=== PATIENT | male | born 1945 | race Caucasian/White ===

== ENCOUNTER 2020-10-12 10:24 | Outpatient (CLI) | payer MEDICARE, SELFPAY ==
--- NOTE | ~2020-10-12 | MR_ITS ---
EXAMINATION: MR shoulder RT wo con DATE: 10/12/2020 11:33 INDICATION: Chronic right shoulder pain. TECHNIQUE: Magnetic resonance imaging (MRI) of the right shoulder was performed without intravenous c ontrast. Sequences included axial PD-weighted FS FSE, coronal oblique PD-weighted FS FSE and T2-weigh quan FS FSE, and sagittal oblique T2-weighted FS FSE and T1-weighted FSE. COMPARISON: None. FINDINGS: Coracoacromial arch: The acromion undersurface is flat in morphology (type I). There is severe acromioclavicular joint ost eoarthritis including inferior directed osteophytes. There is moderate subacromial/subdeltoid bursiti s. There is a 6 mm loose body in subacromial subdeltoid bursa. Rotator cuff: There is severe supraspinatus and infraspinatus tendinopathy. There is a full-thickness tear of supra spinatus and infraspinatus tendons measuring 3.1 cm anterior to posterior by 3.5 cm proximal to dista l with interstitial fluid in infraspinatus tendon tracking to the myotendinous junction. Teres minor tendon is normal. There is severe subscapularis tendinopathy with partial tear. There is mild fatty a trophy of supraspinatus, infraspinatus, and supraspinatus muscle bellies. There is edema in infraspin atus muscle belly, consistent with strain. Biceps tendon and glenoid labrum: There is a partial tear of biceps tendon, which is in the bicipital groove. There is widespread teari ng of the glenoid labrum. Fluid: There is a moderate-sized glenohumeral joint effusion with loose bodies. Bones/cartilage: There is deep partial thickness cartilage loss of humeral head superiorly and medially. There is full -thickness cartilage loss of central glenoid. There is extensive partial thickness cartilage loss of glenoid with subchondral edema of posterior inferior glenoid. Osteophytes are noted. IMPRESSION: 1. Full-thickness rotator cuff tear. 2. Severe glenohumeral joint chondrosis. 3. Partial tear of proximal biceps tendon. 4. Severe acromioclavicular joint osteoarthritis. 5. Moderate-sized glenohumeral joint effusion with loose bodies and moderate subacromial/subdeltoid b ursitis with loose body. Reviewed, dictated and finalized at location A. IMPRESSION: 1. Full-thickness rotator cuff tear. 2. Severe glenohumeral joint chondrosis. 3. Partial tear of proximal biceps tendon. 4. Severe acromioclavicular joint osteoarthritis. 5. Moderate-sized glenohumeral joint effusion with loose bodies and moderate ba bacromial/subdeltoid bursitis with loose body.
== END 2020-10-12 10:25 | disposition home or self-care (01) ==
PROVIDERS: PCP Internal Medicine; Visit Provider Internal Medicine
DX: M75.101 Unspecified rotator cuff tear or rupture of right shoulder, not specified as traumatic (principal); M19.011 Primary osteoarthritis, right shoulder; M25.411 Effusion, right shoulder
CPT/HCPCS: 73221

== ENCOUNTER 2023-11-18 14:53 | Outpatient (CLI) | payer MEDICARE, SELFPAY ==
--- NOTE | ~2023-11-18 | XR_ITS ---
XR shoulder LT min 2V 11/18/2023 15:20 Indication: Left shoulder pain Procedure: 4 views left shoulder Comparison: No prior studies for comparison. Findings: There is polyarticular osteoarthritis of the left shoulder. No fracture or traumatic malali gnment. Superior subluxation of the humeral head suggests rotator cuff tear. Correlate clinically. Impression: 1: Polyarticular osteoarthritis of the left shoulder. Reviewed, dictated and finalized at location B. Impression: 1: Polyarticular osteoarthritis of the left shoulder.
--- NOTE | ~2023-11-18 | XR_ITS ---
Right Shoulder Technique: AP and scapular Y views were obtained. Clinical History: Osteoarthritis Findings: No fracture or dislocation is seen. Osseous alignment is anatomic. There is mild glenohumer al joint degenerative change. There is [id number] AC joint degenerative change. Soft tissues ar e unremarkable. Impression: Degenerative changes, as detailed above. Reviewed, dictated and finalized at location M. Impression: Degenerative changes, as detailed above.
== END 2023-11-18 14:54 | disposition home or self-care (01) ==
LOC: ANHIMG 15:01
PROVIDERS: Visit Provider Orthopaedic Surgery
DX: M19.011 Primary osteoarthritis, right shoulder (principal); M19.012 Primary osteoarthritis, left shoulder
CPT/HCPCS: 73030

== ENCOUNTER 2024-02-09 11:55 | Outpatient (CLI) | payer MEDICARE, SELFPAY ==
--- NOTE | ~2024-02-09 | CT_ITS ---
EXAMINATION: CT shoulder LT wo con DATE: 02/09/2024 12:37 INDICATION: Left shoulder osteoarthritis for preoperative planning TECHNIQUE: High resolution computed tomography (CT) of the left shoulder was performed without intrav enous contrast. Additional sagittal and coronal reconstructions were performed. Automated exposure co ntrol and iterative reconstruction technique were employed. The dose-length product was 768.25 mGy-cm . COMPARISON: Left shoulder radiographs dated 11/18/2023 FINDINGS: Bone alignment is normal. No fracture. Mild osteoarthritis at the left glenohumeral joint and moderat e osteoarthritis at the left acromioclavicular joint. There is a small left glenohumeral joint effusi on with couple loose osteochondral bodies at the deep subscapular recess. There is severe fatty atrop hy of the subscapularis and infraspinatus muscle bellies which could be secondary to chronic denervat ion or rotator cuff tears. Small lytic lesion with sclerotic margins at the cephalad aspect of the in tertubercular groove with appearance and location suggesting possible anchor sites for bicipital teno desis. There is chronic coronary artery calcification. No pathologically enlarged left axillary or le ft hilar lymphadenopathy. IMPRESSION: 1. Polyarticular osteoarthritis at the left shoulder, mild at the glenohumeral and moderate at the ac romioclavicular joints. 2. Severe fatty atrophy of the left subscapularis and infraspinatus muscle bellies which could be due to chronic degeneration or chronic rotator cuff tears. Reviewed, dictated and finalized at location A. IMPRESSION: 1. Polyarticular osteoarthritis at the left shoulder, mild at the glenohumeral and moderate at the acromioclavicular joints. 2. Severe fatty atrophy of the left subscapularis and infraspinatus muscle devi ies which could be due to chronic degeneration or chronic rotator cuff tears.
== END 2024-02-09 11:56 | disposition home or self-care (01) ==
PROVIDERS: Visit Provider Orthopaedic Surgery
DX: M19.012 Primary osteoarthritis, left shoulder (principal)
CPT/HCPCS: 73200

== ENCOUNTER 2024-03-17 13:28 | Outpatient (CLI) | payer MEDICARE, SELFPAY ==
--- NOTE | 2024-03-17 14:40 | ECG_ITS ---
Test Date: 2024-03-17 15:03:56 Measurements Intervals [place] Rate: 92 P: -4 SC: 185 QRS: -39 QRSD: 134 T: -1 QT: 360 QTc: 447 Interpretive Statements SINUS RHYTHM MARKED LEFT AXIS DEVIATION [QRS AXIS < -30] RIGHT BUNDLE BRANCH BLOCK [120+ ms QRS DURATION, UPRIGHT V1, 40+ ms S IN I/aVL/V4/V5/V6] VOLTAGE CRITERIA FOR LVH [MEETS CRITERIA IN ONE OF: R(aVL), S(V1), R(V5), R(V5/V6)+S(V1)] POSSIBLE SEPTAL MYOCARDIAL INFARCTION [30 ms Q WAVE IN V1/V2], PROBABLY OLD No previous ECG available for comparison Electronically Signed On 03-18-2024 14:22:02 [facility] by Fredrick Allison M.D.
[2024-03-17 15:25] LABS: Basophils Percent Auto 0.5 % (0.2-1.2); Eosinophils Absolute Auto 0.1 K/mm3 (0-0.3); Eosinophils Percent Auto 1.3 % (0-4.4); Hematocrit 40.3 % (42.0-52.0); Hemoglobin 13.5 g/dL (14.0-18.0); Immature Granulocyte Absolute 0.03 K/mm3 (0.00-0.031); Immature Granulocyte Percent A 0.4 % (0-0.5); Lymphocytes Absolute Auto 1.44 K/mm3 (0.9-3.2); Lymphocytes Percent Auto 18.7 % (18.3-44.2); Mean Corpuscular HGB Conc 33.5 g/dl (32-36); Mean Corpuscular Hemoglobin 32.1 pg (26-34); Mean Platelet Volume 9.9 fl (7.4-10.4); Monocytes Absolute Auto 0.7 K/mm3 (0.1-0.6); Monocytes Percent Auto 9.4 % (2.6-8.5); Neutrophils Absolute Auto 5.4 K/mm3 (1.3-6.7); Neutrophils Percent Auto 69.7 % (45.5-73.1); Platelet Count Result 173 k/mm3 (150-375); Red Cell Distribution Width 13.4 % (11.5-14.5); White Blood Count 7.7 K/mm3 (4.5-10.0)
[2024-03-17 15:35] LABS: Anion Gap 4 mmol/L (4-12); Blood Urea Nitrogen 25 mg/dL (9-20); Carbon Dioxide 30 mmol/L (22-30); Chloride 106 mmol/L (98-107); Estimated Glomerular Filt Rate > 60; Glucose 97 mg/dL (65-110); Potassium 3.8 mmol/L (3.4-5.0); Sodium 140 mmol/L (137-145)
[2024-03-17 16:38] LABS: MRSA (PCR) NOT DETECTED (NOT DETECTE)
== END 2024-03-17 13:29 | disposition home or self-care (01) ==
LOC: ANHSURGERY 13:35
PROVIDERS: Anesthesiology; PCP Family Medicine; Visit Provider Orthopaedic Surgery
DX: Z01.818 Encounter for other preprocedural examination (principal); M12.812 Other specific arthropathies, not elsewhere classified, left shoulder; I10 Essential (primary) hypertension; Z51.81 Encounter for therapeutic drug level monitoring
CPT/HCPCS: 36415; 80048; 85025; 87641; 93005

== ENCOUNTER 2024-10-02 10:09 | Outpatient (CLI) | payer MEDICARE, SELFPAY ==
[2024-10-02 11:25] LABS: Basophils Percent Auto 0.7 % (0.2-1.2); Eosinophils Absolute Auto 0.1 K/mm3 (0-0.3); Eosinophils Percent Auto 2.4 % (0-4.4); Hematocrit 44.7 % (42.0-52.0); Immature Granulocyte Absolute 0.02 K/mm3 (0.00-0.031); Immature Granulocyte Percent A 0.3 % (0-0.5); Immature Platelet Fraction Pct 4.1 % (0.9-11.2); Lymphocytes Absolute Auto 2.04 K/mm3 (0.9-3.2); Mean Corpuscular HGB Conc 33.6 g/dl (32-36); Mean Corpuscular Volume 95.3 fl (80-100); Mean Platelet Volume 10.4 fl (7.4-10.4); Monocytes Absolute Auto 0.5 K/mm3 (0.1-0.6); Monocytes Percent Auto 8.6 % (2.6-8.5); Neutrophils Absolute Auto 3.1 K/mm3 (1.3-6.7); Platelet Count Result 127 k/mm3 (150-375); Red Blood Count 4.69 M/mm3 (4.6-6.20); Red Cell Distribution Width 13.9 % (11.5-14.5); White Blood Count 5.8 K/mm3 (4.5-10.0)
[2024-10-02 11:48] LABS: Anion Gap 8 mmol/L (4-12); Blood Urea Nitrogen 27 mg/dL (9-20); Calcium 9.6 mg/dL (8.4-10.2); Carbon Dioxide 29 mmol/L (22-30); Chloride 104 mmol/L (98-107); Estimated Glomerular Filt Rate 58; Glucose 107 mg/dL (65-110); Potassium 4.6 mmol/L (3.4-5.0); Sodium 141 mmol/L (137-145)
[2024-10-02 12:48] LABS: MRSA (PCR) NOT DETECTED (NOT DETECTE)
== END 2024-10-02 10:10 | disposition home or self-care (01) ==
LOC: ANHSURGERY 10:16
PROVIDERS: Anesthesiology; PCP Family Medicine; Visit Provider Orthopaedic Surgery
DX: Z01.818 Encounter for other preprocedural examination (principal); M12.812 Other specific arthropathies, not elsewhere classified, left shoulder; Z51.81 Encounter for therapeutic drug level monitoring
CPT/HCPCS: 36415; 80048; 85025; 85055; 87641

== ENCOUNTER 2024-10-31 00:09 | Day surgery (SDC) | payer MEDICARE, SELFPAY ==
[2024-10-02 10:25] VITALS: BP 110/78; PULSE 74; RESP 16; TEMP 36.4; O2SAT 96; BMI 35.9
--- NOTE | 2024-10-02 10:44 | PC.NURSE ---
Report to the Outpatient Waiting Room, entrance under the green pavilion located off [address] [facility], at time ___6:00AM____ on date ___10/31/24____. Planned Procedure Time: ___7:30AM .? Time changes happen often and if your time is changed the preop area will call you the afternoon before. - You and your visitor will be asked to self-screen and do not enter if you have any COVID symptoms. Please call surgeon if you need to reschedule. - A mask is optional within the hospital at this time. Patients may have clear liquids (water, carbonated beverages, clear teas, apple juice) until 3 hours prior to surgery (4:30AM) with a maximum of 20 ounces. - No food from midnight until time of surgery and no smoking, or chewing tobacco (or any form of nicotine). No chewing gum, candy or mints. Take only the following medications with a SIP of water on the morning of surgery: ____SERTRALINE DO NOT STOP ANY OF YOUR OTHER PRESCRIPTION MEDICATIONS PRIOR TO SURGERY EXCEPT THE FOLLOWING Hold all vitamins and supplements for 3 days per anesthesiologist. Medications to discontinue per physician HOLD IBUPROFEN(NSAIDS) 7 DAYS PRE-OP PER DR. RAMIREZ Date to take last dose 10/23/24 Please no make-up, nail macedonian, hairspray, perfume, deodorant, or body powder the day of surgery.? No jewelry (including any body piercings) or valuables the day of surgery, leave them at home.? Please take a shower or bath the night before, or the morning of, surgery with an antibacterial soap.? Wear comfortable, loose fitting clothing.? - Jewelry must be removed prior to entering the operating room.? Rings and piercings that are not removed may be cut off. - The hospital will not accept responsibility for valuables.? - Please leave all valuables, including medications, at home the day of surgery. If you are going home after surgery, a licensed ambulance driver must drive you home.? - NO public transportation without another adult if you receive anesthesia. - We recommend that an adult stay with you for 24 hours following discharge. - We also recommend that you do not drive, make important decision, drink alcoholic beverages, or take any drugs that were not prescribed by your health care provider for at least 24 hours after your discharge time. Follow any additional instructions given to you from your surgeon. Telephone instructions given to ___PATIENT & WIFE and asked if any additional questions and then verbalized understanding. Patient advised to call surgeon office or pre surgery nurse liaison [phone] if any additional questions.
[2024-10-31] VITALS (12 sets, daily range): BP systolic 107–149; BP diastolic 68–94; PULSE 61–89; RESP 16–20; TEMP 35.8–36.5; O2SAT 91–100; BMI 36.2
--- NOTE | ~2024-10-31 | XR_ITS ---
XR shoulder LT min 2V 10/31/2024 10:18 Indication: EXAMINATION: XR shoulder LT min 2V DATE: 10/31/2024 10:18 INDICATION: Left shoulder arthroplasty TECHNIQUE: 2 views left shoulder FINDINGS: There is a left shoulder arthroplasty in expected position. Subcutaneous gas with soft tis wilbur swelling are consistent with recent surgery. IMPRESSION: 1. Recent left shoulder arthroplasty. Reviewed, dictated and finalized at location A.
--- OUTSIDE RECORDS SUMMARY | 2024-10-31 00:12 | XMS_ITS | Referral Summary ---
Author Organization [facility] Address [address] [place] [address] Care Team Providers Care Development Educator Name Role Phone Gadiel Hernandez MD Primary Care Provider Fredrick Allison MD Unavailable [phone] Encounters Date Type Department Care Team Description 08/10/2024 Telephone [facility] at [address] [place] [address] Quinn Hayden MD from Last 3 Months Allergies No known active allergies Medications sertraline (ZOLOFT) 100 mg tablet Take 1 tablet (100 mg total) by mouth daily 90 tablet 5 05/18/19 26 Active traZODone (DESYREL) 50 mg tablet TAKE 1 TABLET BY MOUTH ONCE DAILY IN THE EVENING 100 tablet 5 Active lisinopril-hydroC HLOROthiazide (ZESTORETIC) 10-12.5 mg per tabletIndications :Essential hypertension Take 1 tablet by mouth once daily 100 tablet 5 Active Active Problems Problem Noted Date Diagnosed Date Class 2 drug-induced obesity with serious comorbidity and body mass index (BMI) of 35.0 to 35.9 in adult 03/30/2024 Assessment & Plan (03/30/2024 1:[address] SUPERVISOR OF ENGINES): Chronic, stable, not at goal BMI less than 30. Wt Readings from Last 3 Encounters: 03/30/24 108.4 kg (239 lb) 12/20/23 105.2 kg (232 lb) 08/24/23 108.9 kg (240 lb) Body mass index is 35.29 kg/m . BMI plan includes nutrition and exercise changes Primary osteoarthritis of left shoulder 12/20/19 Assessment & Plan (03/30/2024 1:[address] SUPERVIS[employer]ES): - following with orthopedic provider as above and is undergoing left shoulder total arthroplasty, he has pain and very limited range of motion left shoulder Assessment & Plan (12/20/2023 10:10 AM CDT): - following with orthopedic provider and is planned for undergoing left shoulder total arthroplasty, he has pain and very limited range of motion left shoulder Thrombocytopenia 05/08/2023 Assessment & Plan (12/20/2023 9:50 AM CDT): - chronic condition, stable and mild - reviewed chart records - will continue to monitor Lab Results Component Value Date LABPLAT 138 (L) 08/24/2023 LABPLAT 146 (L) 05/06/2023 LABPLAT 169 12/24/2021 LABPLAT 124 (L) 12/24/2020 LABPLAT 128 (L) 12/21/2019 LABPLAT 114 (L) 12/05/2018 LABPLAT 129 (L) 11/24/2017 LABPLAT 115 (L) 08/24/2017 LABPLAT 156 11/23/2016 LABPLAT 142 (L) 05/05/2016 Chronic back pain 04/02/2023 Assessment & Plan (04/02/2023 3:[address] [employer]VIS[employer]ES): - new diagnosis, unclear etiology - reports he has been to chiropractor - would like to get a back xray, order placed for lumbar spine XR - start use of OTC medication such as Acetaminophen as needed Personal history of tobacco use 04/01/2022 Assessment & Plan (12/20/2023 9:54 AM CDT): Social History Tobacco Use Smoking Status Former Current packs/day: 0.00 Average packs/day: 0.5 packs/day for 45.0 years (22.5 ttl pk-yrs) Types: Cigarettes Start date: 04/12/1993 Quit date: 11/09/2017 Years since quittin.1 Smokeless Tobacco Never Tobacco Comments Startd smoking at age 48, quit 3 years ago at age 73 - continue with abstinence - lung cancer screening - not eligible anymore LDCT 05/04 IMPRESSION: 1. Mild emphysema with a 3 mm fissural nodule along the right major fissure. 2. Significant three-vessel coronary artery atherosclerotic calcification. 3. Cholelithiasis without acute cholecystitis. Assessment & Plan (04/02/2023 3:[address] SUPERVISOR [employer] ENG[employer]ES): Social History Tobacco Use Smoking Status Former Packs/day: 0.50 Years: 45.00 Additional pack years: 0.00 Total pack years: 22.50 Types: Cigarettes Start date: 04/12/1993 Quit date: 11/09/2017 Years since quittin.3 Smokeless Tobacco Never Tobacco Comments Startd smoking at age 48, quit 3 years ago at age 73 - continue with abstinence - lung cancer screening - up to date for now but due soon, order placed for LDCT LDCT 05/04 IMPRESSION: 1. Mild emphysema with a 3 mm fissural nodule along the right major fissure. 2. Significant three-vessel coronary artery atherosclerotic calcification. 3. Cholelithiasis without acute cholecystitis. Assessment & Plan (04/01/2022 11:[address] SUPER[employer]OR [employer]ES): Social History Tobacco Use Smoking Status Former Packs/day: 0.50 Years: 45.00 Pack years: 22.50 Types: Cigarettes Start date: 04/12/1993 Quit date: 11/09/2017 Years since quittin.3 Smokeless Tobacco Never Tobacco Comments Startd smoking at age 48, quit 3 years ago at age 73 - continue with abstinence - due for lung cancer screening, order to be placed Primary osteoarthritis of right foot 03/04/2022 Assessment & Plan (12/20/2023 9:48 AM CDT): - noted in the past XR Toe Great left 03/03 IMPRESSION: 1. Arthritis in the metatarsophalangeal and interphalangeal joints. Osteophyte formation in the interphalangeal joint might be contributing to a limited range of motion. 2. No acute osseous abnormality XR Right Foot 03/03 IMPRESSION: 1. Calcaneal spur 2. Severe arthritis in the 1st metatarsophalangeal joint. There may be some subtle erosive change in the distal 1st metatarsal, difficult to fully appreciate on this exam. 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 Reduction in sleep efficiency. 2. Delay in sleep latency. 3. Severe obstructive sleep apnea syndrome. This seemed to be extremely severe in the supine position. 4. Positive pressure therapy was found to be effective. Bilevel therapy with inspiratory positive airway pressure of 14 cm and expiratory positive airway pressure of 9 cm seems to be the best attempted pressure, and optimal in the lateral position. 5. If the patient prefers to sleep supine, further titration may be indicated. 6. A medium Quattro full face mask was used. Assessment & Plan (12/24/2021 12:33 PM CDT): Was previously advised to reconsider using cpap and to see specialist but pt has declined History of colon polyps 06/09/2017 Assessment & Plan (04/01/2022 11:[address] SUPERVISOR [employer]ES): - chronic condition - most recent Colonoscopy from 2017, impression as shown below - will be due in mid 2022 Procedure: Colonoscopy 10/2017 Indications: High risk colon cancer surveillance: Personal history of colonic polyps, Last colonoscopy: September 2006 Referring MD: Robin Viveros MD Providers: Eran Easley M.D. Impression: - Preparation of the colon was poor. - Hemorrhoids found on perianal exam. - No specimens collected. Recommendation: - Discharge patient to home. - Resume previous diet. - Continue present medications. - Repeat colonoscopy in 5 years for surveillance. - Return to primary care physician as previously scheduled. Essential hypertension 06/09/2017 Assessment & Plan (03/30/2024 1:[address] SUPERVISOR [employer]ES): BP Readings from Last 3 Encounters: 03/30/24 118/70 12/20/23 132/72 08/24/23 (!) 153/105 - chronic condition, stable and at goal SBP <140 at today's office visit - currently on Lisinopril-HCTZ 10-12.5 mg daily - continue current medications as Rx Assessment & Plan (12/20/2023 9:54 AM CDT): BP Readings from Last 3 Encounters: 12/20/23 132/72 08/24/23 (!) 153/105 04/02/23 120/82 - chronic condition, stable status - has history of ED - not on CPAP - currently on Lisinopril-HCTZ 10-12.5 mg daily - continue current management Lab Results Component Value Date GLUCOSE 119 08/24/2023 CALCIUM 9.3 08/24/2023 SODIUM 138 08/24/2023 POTASSIUM 4.3 08/24/2023 CO2 25 08/24/2023 CHLORIDE 103 08/24/2023 BUNSER 19 08/24/2023 CREATININE 0.98 08/24/2023 Assessment & Plan (04/02/2023 3:[address] [employer]OR [employer]ES): BP Readings from Last 3 Encounters: 04/02/23 120/82 04/01/22 92/70 02/24/22 124/82 - chronic condition, stable status - has history of ED - not on CPAP - currently on Lisinopril-HCTZ 10-12.5 mg daily - continue current management Lab Results Component Value Date GLUCOSE 87 12/24/2021 CALCIUM 9.2 12/24/2021 SODIUM 140 12/24/2021 POTASSIUM 3.9 12/24/2021 CO2 26 12/24/2021 CHLORIDE 106 12/24/2021 BUNSER 24 12/24/2021 CREATININE 0.85 12/24/2021 Assessment & Plan (04/01/2022 10:[address] [employer]PER[employer]OR [employer] ENG[employer]ES): - chronic condition, stable status - has history of ED - not on CPAP - currently on Lisinopril-HCTZ 10-12.5 mg daily - continue current management Lab Results Component Value Date GLUCOSE 87 12/24/2021 CALCIUM 9.2 12/24/2021 SODIUM 140 12/24/2021 POTASSIUM 3.9 12/24/2021 CO2 26 12/24/2021 CHLORIDE 106 12/24/2021 BUNSER 24 12/24/2021 CREATININE 0.85 12/24/2021 Assessment & Plan (12/24/2021 12:33 PM CDT): At goal continue current regimen Generalized anxiety disorder 06/09/2017 Assessment & Plan (12/20/2023 9:48 AM CDT): - chronic condition, stable status - currently on Sertaline 100 mg daily, Trazodone 50 mg daily - continue current management Lab Results Component Value Date TSH 1.94 05/06/2023 Assessment & Plan (04/02/2023 10:[address] SUPERVISOR [employer] ENGINES): - chronic condition, stable status - currently on Sertaline 100 mg daily, Trazodone 50 mg daily - continue current management Lab Results Component Value Date TSH 3.34 08/24/2017 Assessment & Plan (04/01/2022 10:[address] SUPERVISOR [employer] ENGINES): - chronic condition, stable status - currently on Sertaline 100 mg daily, Trazodone 50 mg daily - continue current management Lab Results Component Value Date TSH 3.34 08/24/2017 Assessment & Plan (12/24/2021 12:33 PM CDT): Stable - continue zoloft and trazadone Resolved Problems Problem Noted Date Diagnosed Date Resolved Date Noncompliance with CPAP treatment 12/08/2017 04/01/2022 B12 deficiency 06/09/2017 12/20/2018 Skin neoplasm 07/17/2015 08/25/2017 Overview (07/23/2017): Description: R-buccal cheek, erosion r/o NMCS, shave biopsy today, wound care disucssed Postinflammatory hyperpigmentation 07/17/2015 08/25/2017 Overview (07/23/2017): Description: benign, reassurance provided, stop traumatizing areas Benign hypertension 08/26/2013 06/09/19 18 Overview (07/16/2016): BENIGN HYPERTENSION Benign neoplasm of large intestine 08/26/2013 06/09/2017 Overview (07/17/2016): BENIGN NEOPLASM LG BOWEL Knee pain 03/25/2012 08/25/2017 Immunizations Immunization Administration Dates Next Due Influenza, Quadrivalent, Hig h Dose, Preservative Free, Intrr 04/02/2023,01/02/2021,01/02/2020 Influenza, Trivalent, High D ose, Split, Preservative Free, Intramuscular 06/20/2019,06/09/2018(Deferred: Patient Refused) Influenza, Unspecified 02/10/2019(Deferr ed: Patient Refused),12/20/2018(Deferred: Patient Refused),08/11/2018(Deferred: Patient Refused),01/10/2018(Deferred: Patient Refused) Moderna SARS-CoV-2 Monovalen t Vaccination (12+ YRS) 07/26/2020,06/28/2020 Pneumococcal Conjugate PCV 13 10/23/2014 Pneumococcal Polysaccharide PPV23 09/28/2011 Tdap 09/06/2009 Social History Tobacco Use Types Packs/Day Years Used Date Smoking Tobacco: Former Cigarettes 0.5 45 0 04/12/1993 - 11/09/2017 Smokeless Tobacco: Never Tobacco Cessation:Counseling Given: Not Answered Comments:Startd smoking at age 48, quit 3 years ago at age 73 Alcohol Use Standard Drinks/Week Comments Yes 2 (1 standard drink = 0.6 oz pur e alcohol) occasionally AUDIT-C Answer Date Recorded Q1: How often do you have a drink containing alcohol? Never 12/20/2023 Q2: How many drinks containi ng alcohol do you have on a typical day when you are drinking? Patient does not drink Q3: How often do you have si x or more drinks on one occasion? Never 12/20/2023 PHQ-2 Answer Date Recorded PHQ-2 Total Score (If total score is 3 or more points, staff should administer the PHQ-9) 2 12/20/2023 Personal Safety Answer Date Recorded Have you ever been in or are you currently in a harmful physical or emotional relationship or is someone making you feel afraid or unsafe? Denies 08/24/2023 Sex and Gender Information Value Date Recorded Sex Assigned at Not on file Legal Sex Male 11:[address] [employer] Gender Identity Not on file Sexual Orientation Not on file Last Filed Vital Signs Vital Sign Reading Time Taken Comments Blood Pressure 130/73 05/12/2024 2:[address] [employer] Pulse 79 05/12/2024 2:[address] [employer] Temperature 36.4 C (97.5 F) 03/30/2024 1:[address] [employer] Respiratory Rate 16 12/20/2023 9:48 AM CDT Oxygen Saturation 95% 03/30/2024 1:[address] [employer] Inhaled Oxygen Concentration - - Weight 109.8 kg (242 lb) 05/12/2024 2:[address] [employer] Height 175.3 cm (5' 9) 05/12/2024 2:[address] [employer] Body Mass Index 35.74 05/12/2024 2:[address] [employer] Plan of Treatment Not on file Medical Devices Implanted Type Area Nylon Hot Wire Cutter Device Identifier Shelf Expiration Date Model / Serial / Lot Jony Total Hip And Lt Knee Hip Procedures Procedure Name Priority Date/Time Associated Diagnosis Comments PSA SCREEN Routine 05/06/2023 11:[address] [employer]ES Prostate cancer screening CT LUNG CANCER SCREENING Schedule Routine, Read Routine (OP Routine) 04/24/2022 2:[address] [employer] Personal history of tobacco use HEPATITIS C ANTIBODY Routine 12/24/2021 1:38 PM CDT Preventative health care COLONOSCOPY 11/09/2017 12:18 PM CDT from Last 3 Months or Most Recently Relevant to Health Maintenance Results * PSA screen (05/06/2023 11:[address] [employer]INES) PSA-Total 2.47 <=6.20 ng/mL [facility] Comment: Interpretive Data AGE SEX REFERENCE INTERVAL 0 minutes-150 years Female None 0 minutes-49 years Male None 50-59 years Male 0-3.90 60-69 years Male 0-5.40 70-79 years Male 0-6.20 80-150 years Male 0-6.20 The [place] PSA Total assay procedure was used. Results from different manufacturers or methods may not be comparable. Serial testing should be performed using the same method. Current interpretive data last revised 21. Blood 05/06/2023 11:[address] [employer] 05/06/2023 12:[address] [employer] Gadiel Hernandez MD LAB BLOOD ORDERABLES Fi nal Result [facility] 1 [facility] [place] [address] * CT Lung Cancer Screening (04/24/2022 2:[address] SUPER[employer]OR [employer] ENGINES) Anatomical Region Laterality Modality Chest N/A Computed Tomogra phy 04/25/2022 11:[address] [employer] Narrative 04/25/2022 11:[address] [employer]ES EXAM DESCRIPTION: CT LUNG CANCER SCREENING REASON FOR STUDY: Screening CT of the chest in a former smoker with a 22.5 pack year smoking history. Additional history: Hypertension, COVID-19 in summer 2021, asbestos exposure. TECHNIQUE: Low dose CT scan of the chest was performed without intravenous contrast using helical scanning technique. The exam extends from the lung apices through the lung bases. Automatic exposure control was used as a dose optimization technique. NOTE: This study was performed for the specific purposes of lung cancer screening and is not an alternative to diagnostic chest CT. RADIATION DOSE: CT dose index volume (CTDIvol) = 1.92 mGy COMPARISON: None available. FINDINGS: SMOKING RELATED LUNG DISEASE: Mild emphysema. LUNG NODULES: 3 mm nodule in the superior segment of the right lower lobe abutting the major fissure on series 3, image 131. CORONARY ARTERY CALCIFICATION: Significant coronary artery atherosclerotic calcification, dense in the left coronary artery distribution. OTHER: Scattered areas linear scarring and atelectasis in the left lower lobe and lingula. No confluent consolidation, pleural effusion or pneumothorax. Heart size is normal without pericardial effusion. Imaged upper abdomen demonstrates cholelithiasis without acute cholecystitis. Bone window demonstrates multilevel mild degenerative endplate changes in the thoracic spine. No suspicious osseous lesions or acute fractures. IMPRESSION: 1. Mild emphysema with a 3 mm fissural nodule along the right major fissure. 2. Significant three-vessel coronary artery atherosclerotic calcification. 3. Cholelithiasis without acute cholecystitis. Lung-RADS v1.1 category 2S: Benign appearance or behavior. Finding other than a pulmonary nodule which is potentially clinically significant. Recommendation: Low dose Screening CT of chest in 12 months. THIS IS AN ELECTRONICALLY VERIFIED FINAL REPORT 04/25/2022 11:39 PM - Electronically signed by Elfego Urena M.D. ML: ML Report ID: [id number] Reading Location: [place] [address] Procedure Note Elfego Urena MD - 04/25/2022 EXAM DESCRIPTION: CT LUNG CANCER SCREENING REASON FOR STUDY: Screening CT of the chest in a former smoker with a22.5 pack year smoking history. Additional history: Hypertension, COVID-19 in summer 2021, asbestos exposure. TECHNIQUE: Low dose CT scan of the chest was performed without intravenous contrast using helical scanning technique. The exam extends from the lung apices through the lung bases. Automatic exposure control was used as adose optimization technique. NOTE: This study was performed for the specific purposes of lung cancer screening and is not an alternative to diagnostic chest CT. RADIATION DOSE: CT dose index volume (CTDIvol) = 1.92 mGy COMPARISON: None available. FINDINGS: SMOKING RELATED LUNG DISEASE: Mild emphysema. LUNG NODULES: 3 mm nodule in the superior segment of the right lowerlobe abutting the major fissure on series 3, image 131. CORONARY ARTERY CALCIFICATION: Significant coronary arteryatherosclerotic calcification, dense in the left coronary artery distribution. OTHER: Scattered areas linear scarring and atelectasis in the left lower lobe and lingula. No confluent consolidation, pleural effusion or pneumothorax. Heart size is normal without pericardial effusion. Imaged upper abdomen demonstrates cholelithiasis without acute cholecystitis.Bone window demonstrates multilevel mild degenerative endplate changes in the thoracic spine. No suspicious osseous lesions or acute fractures. IMPRESSION: 1. Mild emphysema with a 3 mm fissural nodule along the right majorfissure. 2. Significant three-vessel coronary artery atheroscleroticcalcification. 3. Cholelithiasis without acute cholecystitis. Lung-RADS v1.1 category 2S: Benign appearance or behavior. Finding otherthan a pulmonary nodule which is potentially clinically significant. Recommendation: Low dose Screening CT of chest in 12 months. THIS IS AN ELECTRONICALLY VERIFIED FINAL REPORT 04/25/2022 11:39 PM - Electronically signed by Elfego Urena M.D. ML: ML Report ID: [id number] Reading Location: [place] [address] us Gadiel Hernandez MD IMG CT PROCEDURES Final Result * Hepatitis C antibody (12/24/2021 1:38 PM CDT) Hep C Ab Nonreactive Nonreactive [facility] Comment: Interpretive Data Nonreactive: Antibodies to HCV not detected. Does NOT exclude the possibility of recent exposure to HCV. Equivocal: Equivocal for HCV antibodies. Supplemental molecular testing will be automatically performed to determine infection status in accordance with current CDC screening recommendations. Reactive: Positive for HCV antibodies. This may represent current or past HCV infection. Supplemental molecular testing will be automatically performed to determine current infection status in accordance with current CDC screening recommendations. Interpretive data was last revised on 2019. Testing performed by: [facility], [address] [place] [address], [place]., [address] Blood 12/24/2021 1:38 PM CDT 12/24/2021 9:12 PM CDT us Samuel Ansari MD LAB MICROBIOLOGY - GENERAL ORDER PRISCILA Edited Result - Final [facility] [place] [address] * COLONOSCOPY (11/09/2017 12:18 PM CDT) Anatomical Region Laterality Modality Other Narrative Procedure Note Eran Easley MD - 11/09/2017 12:18 PM CDT [facility] Patient Name: India Bell Procedure Date: 11/09/2017 12:18 PM Date of : 1945 Admit Type: Outpatient Age: 72 Gender: Male Attending MD: Eran Easley M.D. Room: [facility] ROOM 1 Note Status: Finalized Procedure: Colonoscopy Indications: High risk colon cancer surveillance: Personalhistory of colonic polyps, Last colonoscopy: September 2006 Referring MD: Robin Viveros MD Providers: Eran Easley M.D. Impression: - Preparation of the colon was poor. - Hemorrhoids found on perianal exam. - No specimens collected. Recommendation: - Discharge patient to home. - Resume previous diet. - Continue present medications. - Repeat colonoscopy in 5 years for surveillance. - Return to primary care physician as previously scheduled. Medicines: Propofol per Anesthesia Complications: No immediate complications. Estimated Blood Loss: Estimated blood loss: none. Procedure: The benefits, risks and alternatives of theprocedure and sedation were discussed and informed consent was obtained. All questions were answered. Please referto the signed informed consent document in the medical record. The scope was passed under direct vision.The Colonoscope [id number] was introducedthrough the anus and advanced to the the cecum, identifiedby appendiceal orifice and ileocecal valve. The colonoscopy was performed without difficulty. The patient tolerated the procedure well. The quality of the bowel preparation was poor. Findings: Hemorrhoids were found on perianal exam. The exam was otherwise normal throughout the examined colon. Electronically signed by Eran Easley M.D. Eran Easley M.D. 11/09/2017 12:52:33 PM Number of Addenda: 0 Note Initiated On: 11/09/2017 12:18 PM Procedure Code(s): --- Professional --- G0105, Colorectal cancer screening; colonoscopy on individual at high risk Diagnosis Code(s): --- Professional --- K64.9, Unspecified hemorrhoids Z86.010, Personal history of colonic polyps CPT copyright 2017 [employer]. All rights reserved. The codes documented in this report are preliminary and upon teaching artist reviewmay be revised to meet current compliance requirements. Recognized by the [employer] for promoting quality in endoscopy Eran Easley MD ENDOSCOPY PROCEDURES Final Re sult from Last 3 Months or Most Recently Relevant to Health Maintenance Insurance [facility] INSURANCE MEDICARE [employer] [place] [address] [place] [address] MEDICARE SUPPLEMENT INSURANCE MEDICARE [facility] MEDICARE SUPPLEMENT INSURANCE Advance Directives For more information, please contact: [phone] * Full Code (Latest Code Status on File) Date Activated Date Inactivated Comments 11/09/2017 11:48 AM 11/09/2017 4:08 PM Care Teams Development Educator Relationship Specialty Start Date End Date Gadiel Hernandez MD PCP - General Family Medicine 02/24/22 Fredrick Allison MD Consulting Physician Cardiology 05/23/24
--- OUTSIDE RECORDS SUMMARY | 2024-10-31 00:12 | XMS_ITS | Encounter Summary ---
Author Organization [facility] Address [address] [place] [address] Phone Care Team Providers Care Remelt Pan Tank Operator Name Role Phone Samuel Ansari MD Primary Care Provider [phone] Gadiel Hernandez MD Primary Care Provider Fredrick Allison MD Unavailable [phone] Encounter Details Date Type Department Care Team (Late st Contact Info) Description 08/24/2017 Orders Only [facility] ProviderYael MD [address] [place] [address] Social History Tobacco Use Types Packs/Day Years Used Date Smoking Tobacco: Some Days Smokeless Tobacco: Never Alcohol Use Standard Drinks/Week Comments Yes 0 (1 standard drink = 0.6 oz pur e alcohol) Sex and Gender Information Value Date Recorded Sex Assigned at Not on file 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 Historical Provider LAB BLOOD ORDERABLES Lissett l Result documented in this encounter Visit Diagnoses Not on filedocumented in this encounter Care Teams Remelt Pan Tank Operator Relationship Specialty Start Date End Date Samuel Ansari MD PCP - General Family Medicine 12/24/21 02/23/22 Gadiel Hernandez MD PCP - General Family Medicine 02/24/22 Fredrick Allison MD Consulting Physician Cardiology 05/23/24 documented as of this encounter
--- OUTSIDE RECORDS SUMMARY | 2024-10-31 00:12 | XMS_ITS | Continuity of Care Document ---
Author Name [facility] Organization [facility] Care Team Providers Care Managed Services Consultant Name Role Phone [facility] Unavailable Unavailable Medications Combined list of outpatient medications from [facility] and [facility] facilities.Medications provided include 1) outpatient medications from the last 15 months, and 2) patient-reported medications. Medication Details Route Status Patient Instructions Prescription Expires Prescription Number Last Dispense Date Ordering Provider Order Date Order Qty Source HYDROCHLORO THIAZIDE 25MG/LISINO PRIL 20MG TAB TAKE ONE TABLET BY MOUTH EVERY MORNING ORAL ACTIVE PIPPA RUBALCAVA G 2014 [facility] SERTRALINE HCL 100MG TAB TAKE ONE TABLET BY MOUTH EVERY MORNING ORAL ACTIVE PIPPA RUBALCAVA NDA G 2014 [facility] Allergies, Adverse Reactions, Alerts Combined list of allergies from [facility] and [facility] facilities. It does not include entries that were removed or entered in error. Substance Category Reaction Severity Reaction type Status Date Reported Comments Source POLLEN Propensity to adverse reaction (finding) Itching of eye active 5 [facility] Immunizations Combined list of available immunizations from the [facility] and [facility] facilities. Immunization Series Date Given Administered By Site Reaction Lot Number CVX Code Drug Log Rider Status Comments Source TDAP 2013 115 complet ed [facility] Social History Combined list of available smoking, tobacco, and other social history from [facility] and [facility] facilities. Social History Type Response Date Comment Sourc e Tobacco smoking status NHIS CURRENT TOBACCO USER 04/23/2014 [facility] History of tobacco use TOBACCO MEDS OFFE RED BUT DECLINED 04/23/2014 [facility]
--- OUTSIDE RECORDS SUMMARY | 2024-10-31 00:12 | XMS_ITS | Clinical Summary ---
Author Organization [facility] Address [address] [place] [address] Care Team Providers Care Bottom Ironer Name Role Phone Gadiel Hernandez MD Primary Care Provider Fredrick Allison MD Unavailable [phone] Allergies No known active allergies Medications sertraline [...] 03/30/2024 Assessment & Plan (03/30/2024 1:55 PM CREW ATTENDANT): Chronic, stable, not at goal BMI less than 30. Wt Readings from Last 3 Encounters: 03/30/24 108.4 kg (239 lb) 12/20/23 105.2 kg (232 lb) 08/24/23 108.9 kg (240 lb) Body mass index is 35.29 kg/m . BMI plan includes nutrition and exercise changes Primary osteoarthritis of left shoulder 12/20/19 Assessment & Plan (03/30/2024 1:52 PM CREW ATTENDANT): - following with orthopedic provider as above [...] 04/02/2023 Assessment & Plan (04/02/2023 3:11 PM CREW ATTENDANT): - new diagnosis, unclear etiology - reports [...] cholecystitis. Assessment & Plan (04/02/2023 3:13 PM CREW ATTENDANT): Social History Tobacco Use Smoking Status Former [...] cholecystitis. 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 Tracee, M.D. Impression: - Preparation of the colon was poor. - Hemorrhoids found on perianal exam. - No specimens collected. Recommendation: - Discharge patient to home. - Resume previous diet. - Continue present medications. - Repeat colonoscopy in 5 years for surveillance. - Return to primary care physician as previously scheduled. Essential hypertension 06/09/2017 Assessment & Plan (03/30/2024 1:54 PM CREW ATTENDANT): BP Readings from Last 3 Encounters: 03/30/24 [...] 08/24/2023 Assessment & Plan (04/02/2023 3:11 PM CREW ATTENDANT): BP Readings from Last 3 Encounters: 04/02/23 [...] 12/24/2021 Assessment & Plan (04/01/2022 10:59 AM CREW ATTENDANT): - chronic condition, stable status - has [...] 05/06/2023 Assessment & Plan (04/02/2023 10:23 AM CREW ATTENDANT): - chronic condition, stable status - currently on Sertaline 100 mg daily, Trazodone 50 mg daily - continue current management Lab Results Component Value Date TSH 3.34 08/24/2017 Assessment & Plan (04/01/2022 10:39 AM CREW ATTENDANT): - chronic condition, stable status - currently [...] NEOPLASM LG BOWEL Knee pain 03/25/2012 08/25/2017 Encounters Date Type Department Care Team Description 08/10/2024 Telephone [facility] at [address] [place] [address] Quinn Hayden MD from Last 3 Months Immunizations Immunization Administration Dates Next Due Influenza, Quadrivalent, Hig h Dose, Preservative Free, Intrr 04/02/2023,01/02/2021,01/02/2020 Influenza, Trivalent, High D ose, Split, Preservative Free, Intramuscular 06/20/2019,06/09/2018(Deferred: Patient Refused) Influenza, Unspecified 02/10/2019(Deferr ed: Patient Refused),12/20/2018(Deferred: Patient Refused),08/11/2018(Deferred: Patient Refused),01/10/2018(Deferred: Patient Refused) Moderna SARS-CoV-2 Monovalen t Vaccination (12+ YRS) 07/26/2020,06/28/2020 Pneumococcal Conjugate PCV 13 10/23/2014 Pneumococcal Polysaccharide PPV23 09/28/2011 Tdap 09/06/2009 Surgical History Surgery Date Site/Laterality Comments OTHER SURGICAL HISTORY 04/12/2006 - 04/11/2007 Hip replacement R CATARACT EXTRACTION Cataract extraction KNEE ARTHROPLASTY Left Knee replacement COLONOSCOPY 09/13/2006 TOTAL HIP ARTHROPLASTY Left Medical History Medical History Date Comments Hx Other Medical 2001 hx detached ret arturo L Hypertension Hypertension Osteoarthritis Osteoarthritis Hyperlipidemia Hyperlipidemia Anxiety disorder Anxiety Hx Other Medical l hip replaceme nt Colon polyp Visual impairment Back pain Family History Medical History Relation Name Comments Heart disease Father 2 Heart disease; Hypertension Father 2 Hypertension; Depression Mother 2 Depression; Other Mother 2 Cancer -FEMALE; Colon cancer Neg Hx Cancer -colon; Relation Name Status Comments Father 1 Alive Father 2 Mother 1 Alive Mother 2 Social History Tobacco Use Types Packs/Day Years [...] on file Legal Sex Male 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 ATTENDANT Gender Identity Not on file Sexual Orientation Not on file Obstetrics History Last Filed Vital Signs Vital Sign Reading Time Taken Comments Blood Pressure 130/73 05/12/2024 2:35 PM CREW ATTENDANT Pulse 79 05/12/2024 2:35 PM CREW ATTENDANT Temperature 36.4 C (97.5 F) 03/30/2024 1:13 PM CREW ATTENDANT Respiratory Rate 16 12/20/2023 9:48 AM CDT Oxygen Saturation 95% 03/30/2024 1:13 PM CREW ATTENDANT Inhaled Oxygen Concentration - - Weight 109.8 kg (242 lb) 05/12/2024 2:35 PM CREW ATTENDANT Height 175.3 cm (5' 9) 05/12/2024 2:35 PM CREW ATTENDANT Body Mass Index 35.74 05/12/2024 2:35 PM CREW ATTENDANT Plan of Treatment Health Maintenance Due Date Last Done Comments Zoster Vaccine (1 of 2) 10/16/1995 Abdominal Aortic Aneurysm (A AA) Screen 2010 DTaP/Tdap/Td Vaccine (2 - Td or Tdap) 09/07/2019 09/06/2009 Lung Cancer Screening 04/25/2023 04/24/2022 Covid-19 Vaccine (3 - 2023-2 5 season) 2023 07/26/2020, 06/28/2020 Well Visit 65+ 04/02/2024 04/02/2023, 03/13, 01/02/2021, Additional history exists Prostate Cancer Screening-PSA 05/06/2024, 12/24/2021, 12/24/2020, Additional history exists Influenza Vaccine (#1) 2024 , 01/02/2021, 01/02/2020, Additional history exists Depression Screening 12/19/2024 12/20/2023, 04/02/2023, 04/01/2022, Additional history exists Fall Risk Assessment 12/19/2024 12/20/2023, 04/02/2023, 04/01/2022, Additional history exists Pneumococcal vaccine 65+ Completed 10/23/2014, 09/10 Colon Cancer Screening-CT Colonography Discontinued 11/09/2017, 09/13/2006 Colon Cancer Screening-Colonoscopy Discontinued 11/09/2017, 09/13/2006 Colon Cancer Screening-DNA Stool Discontinued 11/10/19 18, 09/13/2006 Colon Cancer Screening-FIT Discontinued 11/09/2017, Colon Cancer Screening-FOBT Discontinued 11/09/2017, 0 09/13/2006 Colon Cancer Screening-Sigmoidoscopy Discontinued 11/09/2017, 09/13/2006 Colorectal Cancer Screening Discontinued Hepatitis C Screening Completed 12/24/2021 Hepatitis B Screening Completed 12/20/2023 Medical Devices Implanted Type Area Hazardous Waste Remover Device Identifier Shelf Expiration Date Model / Serial / Lot Jony Total Hip And Lt Knee Hip Procedures Procedure Name Priority Date/Time Associated Diagnosis Comments PSA SCREEN Routine 05/06/2023 11:00 AM CREW ATTENDANT Prostate cancer screening CT LUNG CANCER SCREENING Schedule Routine, Read Routine (OP Routine) 04/24/2022 2:45 PM CREW ATTENDANT Personal history of tobacco use HEPATITIS C ANTIBODY Routine 12/24/2021 1:38 PM CDT Preventative health care COLONOSCOPY 11/09/2017 12:18 PM CDT from Last 3 Months or Most Recently Relevant to Health Maintenance Results * PSA screen (05/06/2023 11:00 AM CREW ATTENDANT) PSA-Total 2.47 <=6.20 ng/mL [facility] Comment: Interpretive Data AGE SEX REFERENCE INTERVAL [...] revised 21. Blood 05/06/2023 11:0 0 AM CREW ATTENDANT 05/06/2023 12:05 PM CREW ATTENDANT Gadiel Hernandez MD LAB BLOOD ORDERABLES Fi nal Result [facility] [place] [address] * CT Lung Cancer Screening (04/24/2022 2:45 PM CREW ATTENDANT) Anatomical Region Laterality Modality Chest N/A Computed Tomogra phy 04/25/2022 11:3 3 PM CREW ATTENDANT Narrative 04/25/2022 11:39 PM CREW ATTENDANT EXAM DESCRIPTION: CT LUNG CANCER SCREENING REASON [...] Elfego Urena M.D. ML: ML Report ID: [id number] Reading Location: [place] [address] Procedure Note Elfego Urena MD - 04/25/2022 [...] Elfego Urena M.D. ML: ML Report ID: [id number] Reading Location: [place] [address] [facility] Elfego Hernandez MD IM CT PROCEDURES Final Result * Hepatitis C [...] last revised on 2019. Testing performed by: [facility], [address] [place] [address], [place]., [address] Blood 12/24/2021 1:38 PM CDT 12/24/2021 9:12 PM CDT us Samuel Ansari MD LAB MICROBIOLOGY - GENERAL ORDER PRISCILA Edited Result - Final [facility] [place] [address] * COLONOSCOPY (11/09/2017 12:18 PM CDT) Anatomical Region Laterality Modality Other Narrative Procedure Note Eran Easley MD - 11/09/2017 12:18 PM CDT [facility] Patient Name: India Bell Procedure Date: 11/09/2017 12:18 PM Date of : 1945 Admit Type: Outpatient Age: 72 Gender: Male Attending MD: Eran Easley M.D. Room: [facility] ENDOSCOPY ROOM 1 Note Status: Finalized Procedure: [...] scope was passed under direct vision.The Colonoscope [id number] was introducedthrough the anus and advanced to [...] history of colonic polyps CPT copyright 2017 [employer]. All rights reserved. The codes documented in this report are preliminary and upon paleologist reviewmay be revised to meet current compliance requirements. Recognized by the [employer] for promoting quality in endoscopy Eran Easley MD ENDOSCOPY PROCEDURES Final Re sult from Last 3 Months or Most Recently Relevant to Health Maintenance Insurance MEDICARE [facility] MEDICARE SUPPLEMENT INSURANCE MEDICARE COMMERCIAL [place] [place] [address] MEDICARE SUPPLEMENT INSURANCE MEDICARE [facility] MEDICARE SUPPLEMENT INSURANCE Advance Directives For more information, please contact: [phone] * Full Code (Latest Code Status on File) Date Activated Date Inactivated Comments 11/09/2017 11:48 AM 11/09/2017 4:08 PM Care Teams Bottom Ironer Relationship Specialty Start Date End Date Gadiel Hernandez MD PCP - General Family Medicine 02/24/22 Fredrick Allison MD Consulting Physician Cardiology 05/23/24
--- OUTSIDE RECORDS SUMMARY | 2024-10-31 00:12 | XMS_ITS | Encounter Summary ---
Author Organization [facility] Address [address] [place] [address] Phone Care Team Providers Care Reeling Machine Operator Name Role Phone Samuel Ansari MD Primary Care Provider [phone] Gadiel Hernandez MD Primary Care Provider Fredrick Allison MD Unavailable [phone] Encounter Details Date Type Department Care Team (Late st Contact Info) Description 05/27/2017 Orders Only [facility] ProviderYael MD [address] [place] [address] Social History Tobacco Use Types Packs/Day Years Used Date Smoking Tobacco: Some Days Cigarettes Last attempted to quit: 04/12/1999 Alcohol Use Standard Drinks/Week Comments Yes 0 (1 standard drink = 0.6 oz pur e alcohol) Sex and Gender Information Value Date Recorded Sex Assigned at Not on file 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 Historical Provider LAB BLOOD ORDERABLES Lissett l Result documented in this encounter Visit Diagnoses Not on filedocumented in this encounter Care Teams Reeling Machine Operator Relationship Specialty Start Date End Date Samuel Ansari MD PCP - General Family Medicine 12/24/21 02/23/22 Gadiel Hernandez MD PCP - General Family Medicine 02/24/22 Fredrick Allison MD Consulting Physician Cardiology 05/23/24 documented as of this encounter
[2024-10-31] MEDS: LACTATED RINGERS 1,000 ML 30 ML IV CONT ×2 (06:45→10:04)
--- NOTE | 2024-10-31 06:52 | P.PNAN_ITS ---
Anes - Initial Pre Proc Eval Procedure: Operation Date: 10/31/24 07:30 Proposed Procedures p Left Reverse Total Shoulder Arthroplasty - Daniel Aiken MD Date/Time: 10/31/24 06:52 Surgeon: Daniel Aiken MD Pre Op Diagnosis: left shoulder arthropathy Patient Data Age: 79 Gender: M Height: 1.73 m Weight: 108.1 kg Last Vital Signs Temp 36.1 C L 10/31/24 06:20 Pulse 61 10/31/24 06:20 Resp 16 10/31/24 06:20 BP 125/78 10/31/24 06:20 Pulse Ox 97 10/31/24 06:20 O2 Del Method Room Air 10/02/24 10:25 Allergies Allergy/AdvReac Type Severity Reaction Status Date / Time No Known Allergies Allergy Verified 10/02/24 10:22 Home Medications ?Medication ?Instructions ?Recorded ?Confirmed ?Type sertraline 100 mg tablet 100 mg PO HS 11/18/20 10/02/24 History lisinopril 10 1 tablet PO HS 03/17/24 10/02/24 History mg-hydrochlorothiazide 12.5 mg tablet trazodone 50 mg tablet 50 mg PO HS 03/17/24 10/02/24 History ibuprofen 200 mg tablet (Advil) 400 mg PO Q6H PRN pain 10/02/24 10/02/24 History Patient hx anesthesia problems: none Family hx anesthesia problems: none Results Review: All pre-operative results and documents have been reviewed as part of the pre- operative evaluation. [facility] Past Medical History Medical History (Updated 10/31/24 @ 06:52 by Kennedy Morrow DO) Hypertension ED (obstructive sleep apnea) Family History Family History Mother Family history of malignant neoplasm Social History Social History Smoking packs per day: 0.75 Smoking cigarettes per day: 15.0 Years smoked: 40 Smoking pack-years: 30.00 Smoking status: Never smoker Tobacco type: cigarettes Smoking end date: 10/11/19 Alcohol intake: current Drinks per week: 1 Do You Feel Safe in your Home?: Yes Lack of Transportation: No Lack of Food: Never True Current Housing: I Have Housing Concerned About Future Housing: No Difficulty Paying Gas/Electric Bills: No Difficulty Paying for Meds: No Currently Unemployed: No Education: High School Diploma/GED Difficulty w/ Childcare or Family Care: No Living arrangements: with family Additional living arrangements comments: Spiritual care concerns: No Anes - Eval Final PreProcedure Day of Procedure 10/31/24 06:52 Patient weight: obese Heart: regular rate and rhythm Lungs: clear to auscultation Airway: Mallampati scale class III Neurological: alert and oriented Last oral intake: >/= 8 hours ASA classification: III Emergent: no Anesthetic plan: proceed Anesthesia type and monitoring: general ETT and standard monitoring Results Review: All pre-operative results and documents have been reviewed as part of the pre- operative evaluation. Informed Consent: The patient's anesthetic plan and its attendant risks and benefits were discussed with the patient/family/POA. Questions were solicited and answers provided to the satisfaction of the patient/family/POA.
[2024-10-31] MEDS: TRANEXAMIC ACID 1,000MG/ISO100 1,000 MG/100 ML BAG 200 MG IVPB (06:55)
[2024-10-31 07:03] LABS: Immature Platelet Fraction Pct 3.4 % (0.9-11.2); Platelet Count Result 135 k/mm3 (150-375)
[2024-10-31] MEDS: ONDANSETRON INJ 4 MG/2 ML VIAL IV PUSH (07:05)
[2024-10-31] MEDS: ACETAMINOPHEN 500 MG TABLET 1000 MG PO (07:15)
--- NOTE | 2024-10-31 07:15 | WPDHPUPDATE1 ---
History and Physical Update Update Date/Time: 10/31/24 07:15 History and Physical has been reviewed, including an updated exam of the patient. There are NO changes in the patient's condition. Risks, benefits, and alternatives have been discussed and questions answered. Patient agrees to proceed with procedure.
[2024-10-31] MEDS: ceFAZolin 2 GM in SODIUM CHLORIDE 0.9% IV 50 ML 100 ML IVPB (07:34)
--- NOTE | 2024-10-31 07:59 | WPDANESPNB ---
Anes - Peripheral Nerve Block Date/Time: 10/31/24 07:59 I have discussed with the patient/family/POA the placement of a peripheral nerve block for post-operative pain management, including associated risks, benefits, complications, and side effects. Alternative methods of post-operative analgesia were detailed. Questions were solicited and answers provided to the satisfaction of the patient/family/POA. Time-Out: A pre-procedural Time-Out was completed immediately before starting the procedure and confirmed: Patient Identification, Site, Procedure, Patient Position and the Availability of Requisite Equipment. Clinical Indications: Acute post-operative pain management requested by the operative surgeon. Nerve Block Insertion Note Anes-nerve block: interscalene left Patient position: supine Skin prep: chlorhexidine Needle: 22 gauge, stimulating, insulated echogenic needle. Needle length: 50 mm Technique: ultrasound Injectate: bupivacaine 0.5% with epi 5 mcg/ml (20cc- no epi) Observations: tolerated well Complications: none Procedure start time:: 725 Procedure end time:: 729
[2024-10-31] MEDS: SODIUM CHLORIDE 0.9% IV 37.7 ML, MORPHINE SULFATE INJ (*CRX) 2 MG, ROPivacaine HCL 1% 2... INFILTRATE (08:30)
[2024-10-31] MEDS: VANCOMYCIN HCL 1,000 MG VIAL 1000 MG TOPICAL (08:56)
--- NOTE | 2024-10-31 10:25 | P.OP_ITS ---
Procedure Note - Detailed Date of Procedure 10/31/24 Pre-op Diagnosis Left shoulder rotator cuff arthropathy Post-op Diagnosis Same Procedure Performed Reverse total shoulder arthroplasty, left Surgeon Daniel Aiken MD Anesthesia General and Regional (Interscalene block.) Findings Satisfactory bone quality. 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 One deep drain placed. 5 degree augment utilized according to preoperative plan. Description of Procedure The patient was given an interscalene block in the preoperative area. Preoperative antibiotics were given. The patient was transferred to the operating room and a general anesthetic was administered. The beach chair position was used at 45 degrees. All bony prominences were padded. The head was carefully stabilized on the [facility] head loft worker. A sterile prep and drape was performed in the usual manner with ChloraPrep. A longitudinal incision was created at the anterior shoulder just lateral to the deltopectoral interval. Hydrogen peroxide was placed on the incision and then rinsed after one minute. Careful dissection was performed to expose the interval and protect the cephalic vein. The vein was retracted medially. The upper border of the pectoralis was released. Anterior circumflex vessel branches were suture ligated. The biceps was tenodesed. A subscapularis tenotomy was performed. The inferior capsule was released, exposing the humeral head. Osteophytes were removed. Care was taken to stay on bone to protect the axillary nerve. The anatomic head cut was taken with the oscillating saw. The guide pin was placed, central drilling performed, and the broach trial inserted. The neck anteversion and inclination were carefully assessed. The cut protector was placed, and attention was turned to the glenoid. Retractors were placed. Releases were carried out for exposure. The subscapularis was mobilized, the inferior capsule and long head of triceps released, and the superior and middle glenohumeral ligaments released as well. Labral tissue was resected as needed. Version and inclination were corrected according to preoperative templating. The sizing template was used to assess the baseplate position low on the glenoid, with an approximate 2 degrees corrections of retroversion and 5 degrees of inclination. A guide pin was placed. Minimal reaming was used to accomplish a flat surface without violating the subchondral bone. The boss was drilled, and the real component was impacted into position. Supplemental locking screws were placed centrally, superiorly, and inferiorly. The glenosphere was impacted into the taper. The proximal humerus was reamed for the inset component. The humeral components were trialed. The real humeral stem, tray, and insert were impacted into position. The shoulder was copiously irrigated periodically with pulsatile lavage. The shoulder was reduced and stability confirmed. 1 gram of Vancomycin powder was placed in the joint. The biceps tenodesis was incorporated with the pectoralis tendon repair. The remaining tissue was closed with 2-0 Vicryl, 3-0 Stratafix and 4-0 Stratafix, and steri-strips. A sterile silver occlusive dressing and shoulder immobilizer were placed. The patient was transferred to the recovery room. Implants Shoulder [employer]ations reverse TSA size 1 stem. +3 polyethylene insert. 5 augmented baseplate. 36+6 mm glenosphere. Estimated Blood Loss 300 Drains No Pathology None sent Complications No immediate complications Condition Stable Disposition PACU [facility] Billing Surgery - Charge Forward: Surgery Billing
[2024-10-31] MEDS: SODIUM CHLORIDE 0.9% IV 1,000 ML 125 ML IV CONT (11:21)
--- NOTE | 2024-10-31 11:40 | ADMGEN ---
This patient, Daren Hardin, was admitted to 3 [facility] Surg Room 301-01. Patient/family oriented to hospital policies and general routines including ID bracelet, bed and alarms, visiting hours, pain management, procedures, bathroom and other care routines, personal items, smoking policy, room service/diet, and visiting hours. Information on how to activate the Rapid Response Team has been discussed. Patient/Family are encouraged to report perceived risks to care and to ask questions if they do not understand what they are told or what they should do.
--- NOTE | 2024-10-31 13:26 | P.CONIM_ITS ---
Assessment and Plan Assessment and plan (1) Rotator cuff arthropathy of left shoulder: Code(s): M12.812 - Other specific arthropathies, not elsewhere classified, left shoulder Status: Acute Assessment and Plan: Postoperative day 0, status post reverse total shoulder arthroplasty. Wound care, pain control, and DVT prophylaxis deferred to primary service. (2) Hypertension: Code(s): I10 - Essential (primary) hypertension Status: Acute Assessment and Plan: Blood pressures were reviewed and they have been stable postoperatively. Resume lisinopril -hydrochlorothiazide tomorrow and monitor daily. (3) Depression: Code(s): F32.A - Depression, unspecified Status: Acute Assessment and Plan: Well controlled on sertraline, continue. Plan Thank you for allowing us to participate in this patient's care. Please do not hesitate to contact us with any questions. HPI Date of Consult Consult date: 10/31/24 Requesting Physician: Daniel Aiken MD Consult Narrative Reason for consult: Medical management. Narrative: This is a 79-year-old male with osteoarthritis, hypertension, whom the hospitalist service has been consulted for help managing his medical conditions postoperatively. He presented today for elective reverse total shoulder arthroplasty due to ongoing pain despite conservative outpatient therapy. Initially he was scheduled for surgery earlier in the year but that was canceled due to an abnormal EKG. He has since been cleared by Cardiology after having and negative stress test. His surgery today was performed under general anesthesia with regional block. No immediate complications were documented and estimated blood loss was 300 mL. Postoperatively he has minimal discomfort. He continues to have some tingling in the 1st and 2nd finger from the block. Otherwise he is feeling fine and has no complaints. He denies fever, chest pain, shortness of breath, current nausea, and vomiting. Regarding his chronic medical conditions, he reports that they are well controlled on home medications. Review of Systems 2 Review of Systems: 12 systems were reviewed and are negativ e except for as per HPI. [facility] Past Medical History Medical History (Updated 10/31/24 @ 14:42 by Yulissa Velazquez PA-C) Depression Obstructive sleep apnea intolerant to CPAP Hypertension Surgical History Surgical History History of cataract extraction with lens replacement History of total right hip arthroplasty (2006) History of arthroplasty of left shoulder (10/31/24) History of total left hip arthroplasty (05/2015) History of arthroplasty of left knee (12/2012) Family History Family History Mother Family history of malignant neoplasm Social History Social History (Updated 10/31/24 @ 14:40 by Yulissa Velazquez PA-C) Social History: Surrogate medical decision maker: Zahira Hardin, spouse. Code status: Smoking packs per day: 0.75 Smoking cigarettes per day: 15.0 Years smoked: 40 Smoking pack-years: 30.00 Smoking status: Former smoker Tobacco type: cigarettes Smoking end date: 10/11/19 Alcohol intake: current Drinks per week: 1 Substance use: never Do You Feel Safe in your Home?: Yes Lack of Transportation: No Lack of Food: Never True Current Housing: I Have Housing Concerned About Future Housing: No Difficulty Paying Gas/Electric Bills: No Difficulty Paying for Meds: No Currently Unemployed: No Education: Decline to Answer Difficulty w/ Childcare or Family Care: No Living arrangements: with family Additional living arrangements comments: Spiritual care concerns: No Meds Home Medications and Allergies Home Medications ?Medication ?Instructions ?Recorded ?Confirmed ?Type sertraline 100 mg tablet 100 mg PO HS 11/18/20 10/31/24 History lisinopril 10 1 tablet PO HS 03/17/24 10/31/24 History mg-hydrochlorothiazide 12.5 mg tablet trazodone 50 mg tablet 50 mg PO HS 03/17/24 10/31/24 History aspirin 81 mg tablet,delayed 81 mg PO BID #28 tabs 10/31/24 Rx release (Enteric Coated Aspirin) oxycodone-acetaminophen 5 mg-325 1 - 2 tablet PO Q6H PRN pain #30 10/31/24 Rx mg tablet tabs prednisone 5 mg tablet 5 mg PO DAILY #21 tabs 10/31/24 Rx Allergies Allergy/AdvReac Type Severity Reaction Status Date / Time No Known Allergies Allergy Verified 10/31/24 11:43 Vital Signs Vital Signs - 24 hr 10/31/24 06:20 10/31/24 10:04 10/31/24 10:15 Temperature 97 F L 97.2 F L Pulse Rate 61 70 75 Respiratory Rate 16 18 17 Blood Pressure 125/78 149/94 H 133/82 Pulse Oximetry 97 100 99 Oxygen Delivery Simple Face Mask Simple Face Mask Oxygen Flow Rate 8 8 10/31/24 10:25 10/31/24 10:30 10/31/24 10:45 Temperature Pulse Rate 78 77 Respiratory Rate 20 20 Blood Pressure 148/86 H 142/76 H Pulse Oximetry 94 94 Oxygen Delivery Room Air Room Air Room Air Oxygen Flow Rate Exam 2 Narrative: General: Nontoxic male in the semi-Booth position in bed in no distress. Weight: 108.1 kg. BMI: 36.2. HEENT: PERRL, EOMI. Sclera anicteric. Oral mucosa moist. Neck: Supple. Respiratory: Lungs are clear to auscultation bilaterally. Cardiovascular: Regular rate and rhythm with S1-S2. Gastrointestinal: Abdomen is soft, nontender, and nondistended with positive bowel sounds. Skin: Warm and dry. No rash or lesions on limited exam. Extremities: No cyanosis, clubbing, or edema. Radial and pedal pulses intact. Musculoskeletal: Left shoulder dressing is clean, dry, and intact. Left arm is immobilized. Hemovac in place. He is neurovascularly intact distal to the surgical site but reports some paresthesias in the fingertips. Neurological: Alert. Cranial nerves 2-12 grossly intact. No gross focal deficits to casual conversation. Psychiatric: Pleasant and cooperative with normal mood and affect. Judgment and insight intact. Results Labs 10/31/24 06:50 Labs: Short CBC 10/31/24 Range/Units 06:50 Plt Count 135 L (150-375) k/mm3 Imaging Shoulder X-Ray 10/31/24 10:39 IMPRESSION: 1. Recent left shoulder arthroplasty. Hospitalist [facility] Advance Care Plan I have confirmed that the patient's Advanced Care Plan is present, code status is documented, or surrogate decision maker is listed in patient medical record.: Yes Medication Reconciliation I have utilized all available resources to obtain, update and review the patients current medications (includes all prescriptions, OTC, herbals, cannabis, and nutritional supplements).: Yes
[2024-10-31] MEDS: ceFAZolin 2 GM/D5W 50 ML 2 GM/50 ML BAG IVPB ×2 (14:20→23:31)
[2024-10-31] MEDS: ASPIRIN 81 MG ENTERIC TABLET PO (16:14)
[2024-10-31] MEDS: MELOXICAM 7.5 MG TABLET PO (16:15)
[2024-10-31] MEDS: SENNA/DOCUSATE SODIUM TABLET 2 TAB PO (16:15)
[2024-10-31] MEDS: SERTRALINE HCL 50 MG TABLET 100 MG PO (20:13)
[2024-11-01 00:08] VITALS: BP 97/59; PULSE 82; RESP 16; TEMP 36.2; O2SAT 96
[2024-11-01 04:36] VITALS: BP 112/83; PULSE 68; RESP 18; TEMP 36.2; O2SAT 98
[2024-11-01 05:54] LABS: Hematocrit 36.3 % (42.0-52.0); Hemoglobin 12.0 g/dL (14.0-18.0); Immature Granulocyte Percent A 0.3 % (0-0.5); Immature Platelet Fraction Pct 3.2 % (0.9-11.2); Lymphocytes Absolute Auto 1.83 K/mm3 (0.9-3.2); Mean Corpuscular HGB Conc 33.1 g/dl (32-36); Mean Corpuscular Hemoglobin 32.4 pg (26-34); Mean Corpuscular Volume 98.1 fl (80-100); Nucleated Red Blood Cells Absolute Auto 0.000 K/mm3 (0.0-0.012); Nucleated Red Blood Cells Perc 0.0 % (0.0-0.2); Platelet Count Result 110 k/mm3 (150-375); Red Blood Count 3.70 M/mm3 (4.6-6.20); White Blood Count 7.5 K/mm3 (4.5-10.0)
[2024-11-01] MEDS: ceFAZolin 2 GM/D5W 50 ML 2 GM/50 ML BAG IVPB (06:16)
[2024-11-01 06:17] LABS: Anion Gap 5 mmol/L (4-12); Blood Urea Nitrogen 30 mg/dL (9-20); Calcium 8.8 mg/dL (8.4-10.2); Carbon Dioxide 29 mmol/L (22-30); Chloride 101 mmol/L (98-107); Estimated CRCL calculation 46 ml/min; Estimated Glomerular Filt Rate 50; Glucose 105 mg/dL (65-110); Potassium 4.1 mmol/L (3.4-5.0); Sodium 135 mmol/L (137-145)
--- NOTE | 2024-11-01 08:52 | P.PNIM_ITS ---
Progress Note: A&P Assessment and Plan (1) Rotator cuff arthropathy of left shoulder: Code(s): M12.812 - Other specific arthropathies, not elsewhere classified, left shoulder Status: Acute Assessment and Plan: Postoperative day 1 status post reverse total shoulder arthroplasty. Wound care, pain control, and DVT prophylaxis deferred to primary service. (2) Hypertension: Code(s): I10 - Essential (primary) hypertension Status: Acute Assessment and Plan: Blood pressures were reviewed and they have been stable postoperatively. Blood pressure is controlled in the target range Continue hydrochlorothiazide and lisinopril (3) Depression: Code(s): F32.A - Depression, unspecified Status: Acute Assessment and Plan: Well controlled on sertraline, continue. Plan Postop anemia Hemoglobin 12.0, No need transfusion Subjective Date/time seen: 11/01/24 08:52 Interval history: Patient is afebrile, blood pressure stable, Patient feels left shoulder pain is tolerable, blood color-flow drained out from her left shoulder Patient denies chest pain shortness breast abdomen Exam Narrative: General: Nontoxic male in the semi-Booth position in bed in no distress. Weight: 108.1 kg. BMI: 36.2. HEENT: PERRL, EOMI. Sclera anicteric. Oral mucosa moist. Neck: Supple. Respiratory: Lungs are clear to auscultation bilaterally. Cardiovascular: Regular rate and rhythm with S1-S2. Gastrointestinal: Abdomen is soft, nontender, and nondistended with positive bowel sounds. Skin: Warm and dry. No rash or lesions on limited exam. Extremities: No cyanosis, clubbing, or edema. Radial and pedal pulses intact. Musculoskeletal: Left shoulder dressing is clean, dry, and intact. Left arm is immobilized. Hemovac in place. Scant fluid drained out Neurological: Alert. Cranial nerves 2-12 grossly intact. No gross focal deficits to casual conversation. Psychiatric: Pleasant and cooperative with normal mood and affect. Judgment and insight intact. Objective Data Vital Signs Vital Signs: Vital Signs - 24 hr 10/31/24 10:04 10/31/24 10:15 10/31/24 10:25 Temperature 97.2 F L Pulse Rate 70 75 Respiratory Rate 18 17 Blood Pressure 149/94 H 133/82 Pulse Oximetry 100 99 Oxygen Delivery Simple Face Mask Simple Face Mask Room Air Oxygen Flow Rate 8 8 Fraction of Inspired Oxygen 10/31/24 10:30 10/31/24 10:45 10/31/24 10:51 Temperature 96.4 F L Pulse Rate 78 77 78 Respiratory Rate 20 20 20 Blood Pressure 148/86 H 142/76 H 125/82 Pulse Oximetry 94 94 95 Oxygen Delivery Room Air Room Air Oxygen Flow Rate Fraction of Inspired Oxygen 10/31/24 11:36 10/31/24 11:45 10/31/24 12:36 Temperature 96.4 F L 96.4 F L Pulse Rate 76 89 Respiratory Rate 20 20 Blood Pressure 126/76 132/68 Pulse Oximetry 95 97 Oxygen Delivery Room Air Oxygen Flow Rate Fraction of Inspired Oxygen 10/31/24 13:22 10/31/24 14:21 10/31/24 16:01 Temperature Pulse Rate Respiratory Rate Blood Pressure Pulse Oximetry 91 Oxygen Delivery Room Air Room Air Room Air Oxygen Flow Rate Fraction of Inspired Oxygen 10/31/24 16:36 10/31/24 20:10 10/31/24 20:36 Temperature 97.5 F L 97.7 F Pulse Rate 65 68 Respiratory Rate 20 18 Blood Pressure 117/77 107/72 Pulse Oximetry 94 92 97 Oxygen Delivery Room Air Oxygen Flow Rate Fraction of Inspired Oxygen 21 07/23/25 00:08 11/01/24 04:36 Temperature 97.2 F L 97.1 F L Pulse Rate 82 68 Respiratory Rate 16 18 Blood Pressure 97/59 L 112/83 Pulse Oximetry 96 98 Oxygen Delivery Oxygen Flow Rate Fraction of Inspired Oxygen Intake/Output Intake/Output: Intake & Output 10/29/24 10/30/24 10/31/24 11/01/24 23:59 23:59 23:59 23:59 Intake Total 1720 450 Output Total 760 50 Balance 960 400 Meds/Results Medications: Active Medications Generic Name Dose Route Start Last Admin Trade Name Freq PRN Reason Stop Dose Admin Acetaminophen 500 mg 10/31/24 10:51 Acetaminophen 500 Mg Tablet PO Q6H PRN Pain Rated 1-3 Aspirin 81 mg 10/31/24 17:00 10/31/24 16:14 Aspirin 81 Mg Enteric Tablet PO 81 mg BID KIARA Administration Diphenhydramine HCl 25 mg 10/31/24 10:51 Diphenhydramine Hcl Inj 50 Mg/Ml Vial IV PUSH Q6H PRN Itching Hydrochlorothiazide 12.5 mg 10/31/24 21:00 10/31/24 20:13 Hydrochlorothiazide 12.5 Mg Capsule PO 12.5 mg HS KIARA Administration Hydromorphone HCl 1 mg 10/31/24 10:55 Hydromorphone Hcl Inj (*Crx) 2 Mg/Ml Vial IV PUSH Q2H PRN Breakthrough Pain Rated 7-10 or NPO Hydromorphone HCl 0.5 mg 10/31/24 10:55 Hydromorphone Hcl Inj (*Crx) 2 Mg/Ml Vial IV PUSH Q2H PRN Breakthrough Pain Rated 4-6 or NPO Lisinopril 10 mg 10/31/24 21:00 10/31/24 20:13 Lisinopril 10 Mg Tablet PO 10 mg HS KIARA Administration Meloxicam 7.5 mg 10/31/24 17:00 10/31/24 16:15 Meloxicam 7.5 Mg Tablet PO 7.5 mg BID KIARA Administration Naloxone HCl 0.1 mg 10/31/24 10:51 Naloxone Hcl 0.4 Mg/Ml Vial IV PUSH Q2M PRN Opiate Reversal Ondansetron HCl 4 mg 10/31/24 10:51 Ondansetron Inj 4 Mg/2 Ml Vial IV PUSH Q4H PRN Nausea And Vomiting Oxycodone/Acetaminophen 1 tablet 10/31/24 10:51 Oxycodone/Acetaminophen (*Crx) 5-325 Mg Tablet PO Q4H PRN Pain Rated 4-6 Oxycodone/Acetaminophen 1 tab 10/31/24 10:51 Oxycodone/Acetaminophen (*Crx) 10-325 Mg Tablet PO Q6H PRN Pain Rated 7-10 Polyethylene Glycol 17 gm 11/01/24 09:00 Polyethylene Glycol 3350 17 Gm Powd.Pack PO QAM KIARA Prednisone 5 mg 11/01/24 08:00 Prednisone 5 Mg Tablet PO DAILY@0800 KIARA Senna/Docusate Sodium 2 tab 10/31/24 17:00 10/31/24 16:15 Senna/Docusate Sodium Tablet PO 2 tab BID KIARA Administration Sertraline HCl 100 mg 10/31/24 21:00 10/31/24 20:13 Sertraline Hcl 50 Mg Tablet PO 100 mg HS KIARA Administration Trazodone HCl 50 mg 10/31/24 21:00 10/31/24 20:13 Trazodone Hcl 50 Mg Tablet PO 50 mg HS KIARA Administration Radiology Results: ITS Impressions Shoulder X-Ray 10/31/24 10:39 IMPRESSION: 1. Recent left shoulder arthroplasty. Labs Labs: Laboratory Results - last 24 hr 11/01/24 05:08 WBC 7.5 RBC 3.70 L Hgb 12.0 L D Hct 36.3 L MCV 98.1 MCH 32.4 MCHC 33.1 RDW 13.8 Plt Count 110 L MPV 10.7 H Immature Gran % (Auto) 0.3 Neut % (Auto) 65.5 Lymph % (Auto) 24.4 Mckenzie % (Auto) 9.1 H Eos % (Auto) 0.4 Baso % (Auto) 0.3 Lymph # (Auto) 1.83 Mckenzie # (Auto) 0.7 H Eos # (Auto) 0.0 Baso # (Auto) 0.0 Abs Immat Gran (auto) 0.02 Absolute Neuts (auto) 4.9 Absolute Nucleated RBC 0.000 Nucleated RBC % 0.0 % Immature Plt Fraction 3.2 Sodium 135 L Potassium 4.1 Chloride 101 Carbon Dioxide 29 Anion Gap 5 BUN 30 H Creatinine 1.38 H Estim Creat Clear Calc 46 Estimated GFR 50 L Glucose 105 Calcium 8.8
[2024-11-01] MEDS: MELOXICAM 7.5 MG TABLET PO (09:34)
[2024-11-01] MEDS: ASPIRIN 81 MG ENTERIC TABLET PO (09:34)
[2024-11-01] MEDS: SENNA/DOCUSATE SODIUM TABLET 2 TAB PO (09:34)
[2024-11-01 11:53] VITALS: BP 98/59; PULSE 71; RESP 18; TEMP 36.4; O2SAT 98
[2024-11-01 12:05] VITALS: BP 106/67
--- NOTE | 2024-11-01 14:42 | PC.NURSE ---
On 11/01/24, the GENERAL CONTRACTOR, Kym Barboza, provided care and completed [facility] documentation on this patient. I have reviewed the GENERAL CONTRACTOR's documentation and agree with the findings.
== END 2024-11-01 13:35 | disposition home health service (06) ==
LOC: ANHSURGERY 06:13 → ANH3MEDSUR 10:53
PROVIDERS: Anesthesiology; Visit Provider Orthopaedic Surgery
PROC: (CPT 23472; principal; 2024-10-31 07:30)
DX: M12.812 Other specific arthropathies, not elsewhere classified, left shoulder (principal); M75.52 Bursitis of left shoulder; M25.712 Osteophyte, left shoulder; M75.122 Complete rotator cuff tear or rupture of left shoulder, not specified as traumatic; I10 Essential (primary) hypertension; G47.33 Obstructive sleep apnea (adult) (pediatric); F32.A Depression, unspecified; G89.18 Other acute postprocedural pain; E66.9 Obesity, unspecified; Z68.36 Body mass index [BMI] 36.0-36.9, adult; Z79.1 Long term (current) use of non-steroidal anti-inflammatories (NSAID); Z87.891 Personal history of nicotine dependence; Z80.9 Family history of malignant neoplasm, unspecified
CPT/HCPCS: 64415; 23472; 36415; 73030; 80048; 85025; 85049; 85055; 86850; 86900; 86901; 97110; 97116; 97161; 97166; 97530; 97535; J0690; A4565; A9270; C1713; C1776; J0166; J1100; J1885; J2270; J2371; J2405; J2704; J2795; J3373; J7030; J7120; J7512

== ENCOUNTER 2024-11-02 13:25 | Emergency (ER) | payer MEDICARE, SELFPAY ==
--- NOTE | ~2024-11-02 | XR_ITS ---
XR shoulder LT min 2V 11/02/2024 14:09 Indication: Status post fall. Shoulder pain. Procedure: 3 views left shoulder Comparison: 10/31/2024 Findings: There is anatomic alignment. There is a left shoulder arthroplasty which appears to be well seated. No acute fracture, subluxation or dislocation. 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 Impression: 1: No acute fracture. Reviewed, dictated and finalized at location A. Impression: 1: No acute fracture.
[2024-11-02 13:26] VITALS: BP 147/92; PULSE 100; RESP 18; TEMP 36.5; O2SAT 100
--- NOTE | 2024-11-02 13:30 | ED_ITS ---
HPI - Extremity Injury (Upper) General Chief Complaint: Extremity Injury, Upper Stated Complaint: Fell on recently operated on shoulder Time Seen by Provider: 11/02/24 13:30 Focused HPI: This is a 79 year old male that presents to the ER after a fall last night. He is unsure what caused him to fall. Fell onto his left shoulder that he just had surgery on yesterday with Dr. Aiken. Had a reverse total shoulder arthroplasty. He did not his his head or lose consciousness. GENERAL: Well-appearing, well-nourished, and in no acute distress. HEAD: Normocephalic, atraumatic. CHEST: Clear to auscultation. ?No respiratory distress. HEART: Regular rate and rhythm.? NEURO: ?Alert and oriented x3. Patient screened in triage and initial orders placed.? ?Additional care and disposition to be based upon?diagnostic testing and treatment. Related Data Home Medications ?Medication ?Instructions ?Recorded ?Confirmed ?Last Taken ?Type sertraline 100 mg tablet 100 mg PO HS 11/18/20 10/31/24 10/30/24 History lisinopril 10 1 tablet PO HS 03/17/24 10/31/24 10/30/24 History mg-hydrochlorothiazide 12.5 mg tablet trazodone 50 mg tablet 50 mg PO HS 03/17/24 10/31/24 10/30/24 History Allergies Allergy/AdvReac Type Severity Reaction Status Date / Time No Known Allergies Allergy Verified 10/31/24 11:43 Review of Systems Review of Systems: All systems reviewed & are unremarkable except as noted in HPI and below PMFSH Past Medical History Medical History (Updated 11/02/24 @ 17:43 by Radha Ross PA-C) Depression Obstructive sleep apnea intolerant to CPAP Hypertension Surgical History Surgical History History of cataract extraction with lens replacement History of total right hip arthroplasty (2006) History of arthroplasty of left shoulder (10/31/24) History of total left hip arthroplasty (05/2015) History of arthroplasty of left knee (12/2012) Family History Family History Mother Family history of malignant neoplasm Social History Social History (Updated 10/31/24 @ 14:40 by JACKY Olivo Social History: Surrogate medical decision maker: Zahira Hardin, spouse. Code status: Smoking packs per day: 0.75 Smoking cigarettes per day: 15.0 Years smoked: 40 Smoking pack-years: 30.00 Smoking status: Former smoker Tobacco type: cigarettes Smoking end date: 10/11/19 Alcohol intake: current Drinks per week: 1 Substance use: never Do You Feel Safe in your Home?: Yes Lack of Transportation: No Lack of Food: Never True Current Housing: I Have Housing Concerned About Future Housing: No Difficulty Paying Gas/Electric Bills: No Difficulty Paying for Meds: No Currently Unemployed: No Education: Decline to Answer Difficulty w/ Childcare or Family Care: No Living arrangements: with family Additional living arrangements comments: Spiritual care concerns: No Exam Narrative: GENERAL: Well-appearing, well-nourished, and in no acute distress. HEAD: Normocephalic, atraumatic. EYES: EOMI. CHEST: Clear to auscultation. No respiratory distress. No wheezes rales or rhonchi HEART: Regular rate and rhythm. No murmur heard. Normal peripheral pulses. EXTREMITIES: Brace in place to the left shoulder. Operative bandages are in place without surrounding erythema/abnormal drainage. Normal radial pulse. Normal sensation SKIN: Warm, dry, no rash. NEURO: No focal deficits. Alert and oriented x3. PSYCH: Normal mood and affect Course Vital Signs Vital signs: Vital Signs Temperature 97.7 F 11/02/24 13:26 Pulse Rate 100 11/02/24 13:26 Respiratory Rate 18 11/02/24 13:26 Blood Pressure 147/92 H 11/02/24 13:26 Pulse Oximetry 100 11/02/24 13:26 Oxygen Delivery Room Air 11/02/24 13:26 Temperature 97.7 F 11/02/24 13:26 Pulse Rate 100 11/02/24 13:26 Respiratory Rate 18 11/02/24 13:26 Blood Pressure 147/92 H 11/02/24 13:26 Pulse Oximetry 100 11/02/24 13:26 Oxygen Delivery Room Air 11/02/24 13:26 MDM - Extremity Injury (Upper) MDM Narrative Medical decision making narrative: Patient presents to the emergency department after a fall last night with injury to the left shoulder. He just had a reverse total shoulder arthroplasty yesterday. He did not hit his head or lose consciousness. He is neurovascularly intact. Denies any other injuries or focal areas of pain. Left shoulder x-ray is without acute osseous abnormality. Shows arthroplasty in good position. Patient was updated on his workup and agrees with plan of care. He is to have further follow-up with his orthopedics doctor. He was given warnings to return to the ER Differential Diagnosis Differential diagnosis: Likely dislocation of shoulder and other (contusion, fracture) Imaging Data Radiologist's impression: ITS Impressions Shoulder X-Ray 11/02/24 14:17 Impression: 1: No acute fracture. Critical Care Time Critical Care Time Critical Care Time: No Discharge Plan Discharge Clinical Impression: Acute pain of left shoulder Patient Disposition: Home Condition: Stable Instructions: Contusion in Adults (ED) Additional Instructions: Return to the ER if you experience fever, redness and swelling of your extremity, numbness or any other symptoms that are concerning to you Wear your brace as directed. Ice to the area. Pain medication as needed and directed. Follow up with your orthopedics doctor for further care. Patient Language: Polish Prescriptions: New meloxicam 7.5 mg tablet 7.5 mg PO BID 30 Days Qty: 60 0RF No Action sertraline 100 mg tablet 100 mg PO HS trazodone 50 mg tablet 50 mg PO HS lisinopril-hydrochlorothiazide 10-12.5 mg tablet 1 tablet PO HS prednisone 5 mg tablet 5 mg PO DAILY Qty: 21 0RF aspirin [Enteric Coated Aspirin] 81 mg tablet,delayed release (DR/EC) 81 mg PO BID Qty: 28 0RF oxycodone-acetaminophen 5-325 mg tablet 1 - 2 tablet PO Q6H MDD 6 tablets PRN (Reason: pain) Qty: 30 0RF Follow-up/Referrals: PHYSICIAN,STORE FACILITY TECHNICIAN [Primary Care Provider] -
--- OUTSIDE RECORDS SUMMARY | 2024-11-02 13:32 | XMS_ITS | Encounter Summary ---
Author Organization [facility] Address [address] [place] [address] Phone Care Team Providers Care Senior Planning Manager Name Role Phone Samuel Ansari MD Primary Care Provider [phone] Gadiel Hernandez MD Primary Care Provider Fredrick Allison MD Unavailable [phone] Encounter Details Date Type Department Care Team (Late st Contact Info) Description 05/27/2017 Orders Only [facility] ProviderYael MD [address] [place] [address] Social History Tobacco Use Types Packs/Day Years Used Date Smoking Tobacco: Some Days Cigarettes Last attempted to quit: 04/12/1999 Alcohol Use Standard Drinks/Week Comments Yes 0 (1 standard drink = 0.6 oz pur e alcohol) Sex and Gender Information Value Date Recorded Sex Assigned at Not on file 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 Historical Provider LAB BLOOD ORDERABLES Lissett l Result documented in this encounter Visit Diagnoses Not on filedocumented in this encounter Care Teams Senior Planning Manager Relationship Specialty Start Date End Date Samuel Ansari MD PCP - General Family Medicine 12/24/21 02/23/22 Gadiel Hernandez MD PCP - General Family Medicine 02/24/22 Fredrick Allison MD Consulting Physician Cardiology 05/23/24 documented as of this encounter
--- OUTSIDE RECORDS SUMMARY | 2024-11-02 13:33 | XMS_ITS | Encounter Summary ---
Author Organization [facility] Address [address] [place] [address] Phone Care Team Providers Care Beef Breaker Name Role Phone Samuel Ansari MD Primary Care Provider [phone] Gadiel Hernandez MD Primary Care Provider Fredrick Allison MD Unavailable [phone] Encounter Details Date Type Department Care Team (Late st Contact Info) Description 08/24/2017 Orders Only [facility] ProviderYael MD [address] [place] [address] Social History Tobacco Use Types Packs/Day Years Used Date Smoking Tobacco: Some Days Smokeless Tobacco: Never Alcohol Use Standard Drinks/Week Comments Yes 0 (1 standard drink = 0.6 oz pur e alcohol) Sex and Gender Information Value Date Recorded Sex Assigned at Not on file 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
--- OUTSIDE RECORDS SUMMARY | 2024-11-02 13:33 | XMS_ITS | Clinical Summary ---
Author Organization [facility] Address [address] [place] [address] Care Team Providers Care Equipment Operator Intermodal Yard Name Role Phone Gadiel Hernandez MD Primary Care Provider Fredrick Allison MD Unavailable [phone] Allergies No known active allergies Medications sertraline [...] 03/30/2024 Assessment & Plan (03/30/2024 1:55 PM RESEARCH LABORATORY MANAGER): Chronic, stable, not at goal BMI less than 30. Wt Readings from Last 3 Encounters: 03/30/24 108.4 kg (239 lb) 12/20/23 105.2 kg (232 lb) 08/24/23 108.9 kg (240 lb) Body mass index is 35.29 kg/m . BMI plan includes nutrition and exercise changes Primary osteoarthritis of left shoulder 12/20/19 Assessment & Plan (03/30/2024 1:52 PM RESEARCH LABORATORY MANAGER): - following with orthopedic provider as above [...] 04/02/2023 Assessment & Plan (04/02/2023 3:11 PM RESEARCH LABORATORY MANAGER): - new diagnosis, unclear etiology - reports [...] cholecystitis. Assessment & Plan (04/02/2023 3:13 PM RESEARCH LABORATORY MANAGER): Social History Tobacco Use Smoking Status Former [...] cholecystitis. 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 High risk of cardiac event 12/08/2017 Obstructive sleep apnea syndrome 08/24/2017 Overview (12/20/2023): Not on CPAP Assessment & Plan (04/01/2022 11:01 AM RESEARCH LABORATORY MANAGER): - chronic, uncontrolled - s/p PSG in [...] 06/09/2017 Assessment & Plan (04/01/2022 11:03 AM RESEARCH LABORATORY MANAGER): - chronic condition - most recent Colonoscopy [...] 06/09/2017 Assessment & Plan (03/30/2024 1:54 PM RESEARCH LABORATORY MANAGER): BP Readings from Last 3 Encounters: 03/30/24 [...] 08/24/2023 Assessment & Plan (04/02/2023 3:11 PM RESEARCH LABORATORY MANAGER): BP Readings from Last 3 Encounters: 04/02/23 [...] 12/24/2021 Assessment & Plan (04/01/2022 10:59 AM RESEARCH LABORATORY MANAGER): - chronic condition, stable status - has [...] 05/06/2023 Assessment & Plan (04/02/2023 10:23 AM RESEARCH LABORATORY MANAGER): - chronic condition, stable status - currently on Sertaline 100 mg daily, Trazodone 50 mg daily - continue current management Lab Results Component Value Date TSH 3.34 08/24/2017 Assessment & Plan (04/01/2022 10:39 AM RESEARCH LABORATORY MANAGER): - chronic condition, stable status - currently [...] Type Department Care Team Description 08/10/2024 Telephone [facility] at [address] [place] [address] Quinn Hayden MD from Last [...] on file Legal Sex Male 11:04 AM RESEARCH LABORATORY MANAGER Gender Identity Not on file Sexual Orientation Not on file Obstetrics History Last Filed Vital Signs Vital Sign Reading Time Taken Comments Blood Pressure 130/73 05/12/2024 2:35 PM RESEARCH LABORATORY MANAGER Pulse 79 05/12/2024 2:35 PM RESEARCH LABORATORY MANAGER Temperature 36.4 C (97.5 F) 03/30/2024 1:13 PM RESEARCH LABORATORY MANAGER Respiratory Rate 16 12/20/2023 9:48 AM CDT Oxygen Saturation 95% 03/30/2024 1:13 PM RESEARCH LABORATORY MANAGER Inhaled Oxygen Concentration - - Weight 109.8 kg (242 lb) 05/12/2024 2:35 PM RESEARCH LABORATORY MANAGER Height 175.3 cm (5' 9) 05/12/2024 2:35 PM RESEARCH LABORATORY MANAGER Body Mass Index 35.74 05/12/2024 2:35 PM RESEARCH LABORATORY MANAGER Plan of Treatment Health Maintenance Due Date [...] Completed 12/20/2023 Medical Devices Implanted Type Area Can Top Setter Device Identifier Shelf Expiration Date Model / Serial / Lot Jony Total Hip And Lt Knee Hip Procedures Procedure Name Priority Date/Time Associated Diagnosis Comments PSA SCREEN Routine 05/06/2023 11:00 AM RESEARCH LABORATORY MANAGER Prostate cancer screening CT LUNG CANCER SCREENING Schedule Routine, Read Routine (OP Routine) 04/24/2022 2:45 PM RESEARCH LABORATORY MANAGER Personal history of tobacco use HEPATITIS C ANTIBODY Routine 12/24/2021 1:38 PM CDT Preventative health care COLONOSCOPY 11/09/2017 12:18 PM CDT from Last 3 Months or Most Recently Relevant to Health Maintenance Results * PSA screen (05/06/2023 11:00 AM RESEARCH LABORATORY MANAGER) PSA-Total 2.47 <=6.20 ng/mL [facility] Comment: Interpretive Data AGE SEX REFERENCE INTERVAL [...] revised 21. Blood 05/06/2023 11:0 0 AM RESEARCH LABORATORY MANAGER 05/06/2023 12:05 PM RESEARCH LABORATORY MANAGER Gadiel Hernandez MD LAB BLOOD ORDERABLES Fi nal Result [facility] 1 [facility] Department [place] [address] * CT Lung Cancer Screening (04/24/2022 2:45 PM RESEARCH LABORATORY MANAGER) Anatomical Region Laterality Modality Chest N/A Computed Tomogra phy 04/25/2022 11:3 3 PM RESEARCH LABORATORY MANAGER Narrative 04/25/2022 11:39 PM RESEARCH LABORATORY MANAGER EXAM DESCRIPTION: CT LUNG CANCER SCREENING REASON [...] Elfego Urena M.D. ML: ML Report ID: [id number] Reading Location: [place] [address] Procedure Note Elfego Urena MD - 04/25/2022 [...] Elfego Urena M.D. ML: ML Report ID: [id number] Reading Location: [place] [address] [facility] Elfego Hernandez MD IM CT PROCEDURES [...] last revised on 2019. Testing performed by: [facility], [address] [place] [address], [place]., [address] Blood 12/24/2021 1:38 PM CDT 12/24/2021 9:12 PM CDT us Samuel Ansari MD LAB MICROBIOLOGY - GENERAL ORDER PRISCILA Edited Result - Final [facility] [place]) 1 [facility] Department [place] [address] * COLONOSCOPY (11/09/2017 12:18 PM CDT) Anatomical Region Laterality Modality Other Narrative Procedure Note Eran Easley MD - 11/09/2017 12:18 PM CDT [facility] Patient Name: India Bell Procedure Date: 11/09/2017 12:18 PM Date of : 1945 Admit Type: Outpatient Age: 72 Gender: Male Attending MD: Eran Easley M.D. Room: [facility] ENDOSCOPY ROOM 1 Note Status: Finalized Procedure: Colonoscopy Indications: High risk colon cancer surveillance: Personalhistory of colonic polyps, Last colonoscopy: September 2006 Referring MD: Robin Viveros MD Providers: Eran Easlye M.D. Impression: - Preparation of the colon [...] scope was passed under direct vision.The Colonoscope [id number] was introducedthrough the anus and advanced to [...] history of colonic polyps CPT copyright 2017 [employer]. All rights reserved. The codes documented in this report are preliminary and upon hide puller reviewmay be revised to meet current compliance requirements. Recognized by the [place] [employer] for promoting quality in endoscopy Eran Easley MD ENDOSCOPY PROCEDURES Final Re sult from Last 3 Months or Most Recently Relevant to Health Maintenance Insurance MEDICARE [facility] MEDICARE SUPPLEMENT INSURANCE MEDICARE COMMERCIAL [place] [place] [id number] MEDICARE SUPPLEMENT INSURANCE MEDICARE [facility] MEDICARE SUPPLEMENT INSURANCE Advance Directives For more information, please contact: [phone] * Full Code (Latest Code Status on File) Date Activated Date Inactivated Comments 11/09/2017 11:48 AM 11/09/2017 4:08 PM Care Teams Equipment Operator Intermodal Yard Relationship Specialty Start Date End Date Gadiel Hernandez MD PCP - General Family Medicine 02/24/22 Fredrick Allison MD Consulting Physician Cardiology 05/23/24
--- OUTSIDE RECORDS SUMMARY | 2024-11-02 13:33 | XMS_ITS | Referral Summary ---
Author Organization [facility] Address [address] [place] [address] Care Team Providers Care Supervisory Aide Name Role Phone Gadiel Hernandez MD Primary Care Provider Fredrick Allison MD Unavailable [phone] Encounters Date Type Department Care Team Description 08/10/[address] [facility] at [address] [place] [address] Quinn Hayden MD from Last [...] 03/30/2024 Assessment & Plan (03/30/2024 1:55 PM SLICING MACHINE FEEDER): Chronic, stable, not at goal BMI less than 30. Wt Readings from Last 3 Encounters: 03/30/24 108.4 kg (239 lb) 12/20/23 105.2 kg (232 lb) 08/24/23 108.9 kg (240 lb) Body mass index is 35.29 kg/m . BMI plan includes nutrition and exercise changes Primary osteoarthritis of left shoulder 12/20/19 Assessment & Plan (03/30/2024 1:52 PM SLICING MACHINE FEEDER): - following with orthopedic provider as above [...] 04/02/2023 Assessment & Plan (04/02/2023 3:11 PM SLICING MACHINE FEEDER): - new diagnosis, unclear etiology - reports [...] cholecystitis. Assessment & Plan (04/02/2023 3:13 PM SLICING MACHINE FEEDER): Social History Tobacco Use Smoking Status Former [...] cholecystitis. 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] 12/24/2021 Assessment & Plan (04/01/2022 10:59 AM SLICING MACHINE FEEDER): - chronic condition, stable status - has [...] 05/06/2023 Assessment & Plan (04/02/2023 10:23 AM SLICING MACHINE FEEDER): - chronic condition, stable status - currently on Sertaline 100 mg daily, Trazodone 50 mg daily - continue current management Lab Results Component Value Date TSH 3.34 08/24/2017 Assessment & Plan (04/01/2022 10:39 AM SLICING MACHINE FEEDER): - chronic condition, stable status - currently [...] on file Legal Sex Male 11:04 AM SLICING MACHINE FEEDER Gender Identity Not on file Sexual Orientation Not on file Last Filed Vital Signs Vital Sign Reading Time Taken Comments Blood Pressure 130/73 05/12/2024 2:35 PM SLICING MACHINE FEEDER Pulse 79 05/12/2024 2:35 PM SLICING MACHINE FEEDER Temperature 36.4 C (97.5 F) 03/30/2024 1:13 PM SLICING MACHINE FEEDER Respiratory Rate 16 12/20/2023 9:48 AM CDT Oxygen Saturation 95% 03/30/2024 1:13 PM SLICING MACHINE FEEDER Inhaled Oxygen Concentration - - Weight 109.8 kg (242 lb) 05/12/2024 2:35 PM SLICING MACHINE FEEDER Height 175.3 cm (5' 9) 05/12/2024 2:35 PM SLICING MACHINE FEEDER Body Mass Index 35.74 05/12/2024 2:35 PM SLICING MACHINE FEEDER Plan of Treatment Not on file Medical Devices Implanted Type Area Jig Grinder Set Up Operator Device Identifier Shelf Expiration Date Model / Serial / Lot Jony Total Hip And Lt Knee Hip Procedures Procedure Name Priority Date/Time Associated Diagnosis Comments PSA SCREEN Routine 05/06/2023 11:00 AM SLICING MACHINE FEEDER Prostate cancer screening CT LUNG CANCER SCREENING Schedule Routine, Read Routine (OP Routine) 04/24/2022 2:45 PM SLICING MACHINE FEEDER Personal history of tobacco use HEPATITIS C ANTIBODY Routine 12/24/2021 1:38 PM CDT Preventative health care COLONOSCOPY 11/09/2017 12:18 PM CDT from Last 3 Months or Most Recently Relevant to Health Maintenance Results * PSA screen (05/06/2023 11:00 AM SLICING MACHINE FEEDER) PSA-Total 2.47 <=6.20 ng/mL [facility] [...] revised 21. Blood 05/06/2023 11:0 0 AM SLICING MACHINE FEEDER 05/06/2023 12:05 PM SLICING MACHINE FEEDER Gadiel Hernandez MD LAB BLOOD ORDERABLES Fi nal Result [facility] 1 [facility] Department [place] [address] * CT Lung Cancer Screening (04/24/2022 2:45 PM SLICING MACHINE FEEDER) Anatomical Region Laterality Modality Chest N/A Computed Tomogra phy 04/25/2022 11:3 3 PM SLICING MACHINE FEEDER Narrative 04/25/2022 11:39 PM SLICING MACHINE FEEDER EXAM DESCRIPTION: CT LUNG CANCER SCREENING REASON [...] Elfego Urena M.D. ML: ML Report ID: [id number] Reading Location: [place] [address] Procedure Note Elfego Urena MD - 04/25/2022 [...] Elfego Urena M.D. ML: ML Report ID: [id number] Reading Location: [place] [address] us Gadiel Hernandez MD IMG CT PROCEDURES [...] last revised on 2019. Testing performed by: [facility], [address] [place] [address], [place]., [address] Blood 12/24/2021 1:38 PM CDT 12/24/2021 9:12 PM CDT us Samuel Ansari MD LAB MICROBIOLOGY - GENERAL ORDER PRISCILA Edited Result - Final [facility] 1 [facility] Department [place] [address] * COLONOSCOPY (11/09/2017 12:18 PM CDT) Anatomical Region Laterality Modality Other Narrative Procedure Note Eran Easley MD - 11/09/2017 12:18 PM CDT [facility] Patient Name: India Bell Procedure Date: 11/09/2017 12:18 PM Date of : 1945 Admit Type: Outpatient Age: 72 Gender: Male Attending MD: Eran Easley M.D. Room: [facility] ENDOSCOPY ROOM 1 Note Status: [...] scope was passed under direct vision.The Colonoscope [id number] was introducedthrough the anus and advanced to [...] history of colonic polyps CPT copyright 2017 [employer]. All rights reserved. The codes documented in this report are preliminary and upon contingents supervisor reviewmay be revised to meet current compliance requirements. Recognized by the [place] for promoting quality in endoscopy Eran Easley MD ENDOSCOPY PROCEDURES Final Re sult from Last 3 Months or Most Recently Relevant to Health Maintenance Insurance [facility] MEDIC[facility] SUPPLEMENT INSURANCE MEDICARE COMMERCIAL [place] [address] [address] [place] [address] MEDICARE SUPPLEMENT [place] [address] [facility] MEDICARE SUPPLEMENT INSURANCE Advance Directives For more information, please contact: [phone] * Full Code (Latest Code Status on File) Date Activated Date Inactivated Comments 11/09/2017 11:48 AM 11/09/2017 4:08 PM Care Teams Supervisory Aide Relationship Specialty Start Date End Date Gadiel Hernandez MD PCP - General Family Medicine 02/24/22 Fredrick Allison MD Consulting Physician Cardiology 05/23/24
--- OUTSIDE RECORDS SUMMARY | 2024-11-02 13:33 | XMS_ITS | Continuity of Care Document ---
Author Name [facility] Organization [facility] Care Team Providers Care Electric Pile Driver Operator Name Role Phone [facility] Unavailable Unavailable Medications Combined list of outpatient medications from Department [facility] and [facility] facilities.Medications provided include 1) outpatient medications from the last 15 months, and 2) patient-reported medications. Medication Details Route Status Patient Instructions Prescription Expires Prescription Number Last Dispense Date Ordering Provider Order Date Order Qty Source HYDROCHLORO THIAZIDE 25MG/LISINO PRIL 20MG TAB TAKE ONE TABLET BY MOUTH EVERY MORNING ORAL ACTIVE PIPPA RUBALCAVA G 2014 [facility] SERTRALINE HCL 100MG TAB TAKE ONE TABLET BY MOUTH EVERY MORNING ORAL ACTIVE PIPPA RUBALCAVA NDA G 2014 [facility] Allergies, Adverse Reactions, Alerts Combined list of allergies from [facility] and [facility] facilities. It does not include entries that were removed or entered in error. Substance Category Reaction Severity Reaction type Status Date Reported Comments Source POLLEN Propensity to adverse reaction (finding) Itching of eye active 5 [facility] Immunizations Combined list of available immunizations from the [facility] and [facility] facilities. Immunization Series Date Given Administered By Site Reaction Lot Number CVX Code Drug Van Owner Operator Status Comments Source TDAP 2013 115 complet ed [facility] Social History Combined list of available smoking, tobacco, and other social history from [facility] and [facility] facilities. Social History Type Response Date Comment Sourc e Tobacco smoking status NHIS CURRENT TOBACCO USER 04/23/2014 [facility] History of tobacco use TOBACCO MEDS OFFE RED BUT DECLINED 04/23/2014 [facility]
--- OUTSIDE RECORDS SUMMARY | 2024-11-02 17:56 | XMS_ITS | Encounter Summary ---
Author Organization [facility] Address [address] [place] [address] Phone Care Team Providers Care Wig Stylist Name Role Phone Samuel Ansari MD Primary Care Provider [phone] Gadiel Hernandez MD Primary Care Provider Fredrick Allison MD Unavailable [phone] Encounter Details Date Type Department Care Team (Late st Contact Info) Description 05/27/2017 Orders Only [facility] ProviderYael MD [address] [place] [address] Social History Tobacco Use Types Packs/Day Years Used Date Smoking Tobacco: Some Days Cigarettes Last attempted to quit: 04/12/1999 Alcohol Use Standard Drinks/Week Comments Yes 0 (1 standard drink = 0.6 oz pur e alcohol) Sex and Gender Information Value Date Recorded Sex Assigned at Not on file Legal Sex Male 11:04 AM ROUTE SALES MANAGER Gender Identity Not on file Sexual Orientation Not on file documented as of this encounter Plan of Treatment Not on file documented as of this encounter Procedures Procedure Name Priority Date/Time Associated Diagnosis Comments DISCHARGE LABORATORY CUMULATIVE REPORT 05/27/2017 12:00 AM ROUTE SALES MANAGER documented in this encounter Results * DISCHARGE LABORATORY CUMULATIVE REPORT (05/27/2017 12:00 AM ROUTE SALES MANAGER) Narrative 05/27/2017 12:00 AM ROUTE SALES MANAGER Ordered by an unspecified provider. Historical Provider LAB BLOOD ORDERABLES Lissett l Result documented in this encounter Visit Diagnoses Not on filedocumented in this encounter Care Teams Wig Stylist Relationship Specialty Start Date End Date Samuel Ansari MD PCP - General Family Medicine 12/24/21 02/23/22 Gadiel Hernandez MD PCP - General Family Medicine 02/24/22 Fredrick Allison MD Consulting Physician Cardiology 05/23/24 documented as of this encounter
--- OUTSIDE RECORDS SUMMARY | 2024-11-02 17:56 | XMS_ITS | Referral Summary ---
Author Organization [facility] Address [address] [place] [address] Care Team Providers Care Manager Production Name Role Phone Gadiel Hernandez MD Primary Care Provider Fredrick Allison MD Unavailable [phone] Encounters Date Type Department Care Team Description 08/10/2024 Telephone [facility] at [address] [place] [address] Quinn Hayden MD from Last [...] 03/30/2024 Assessment & Plan (03/30/2024 1:55 PM SENIOR COST ESTIMATOR): Chronic, stable, not at goal BMI less than 30. Wt Readings from Last 3 Encounters: 03/30/24 108.4 kg (239 lb) 12/20/23 105.2 kg (232 lb) 08/24/23 108.9 kg (240 lb) Body mass index is 35.29 kg/m . BMI plan includes nutrition and exercise changes Primary osteoarthritis of left shoulder 12/20/19 Assessment & Plan (03/30/2024 1:52 PM SENIOR COST ESTIMATOR): - following with orthopedic provider as above [...] 04/02/2023 Assessment & Plan (04/02/2023 3:11 PM SENIOR COST ESTIMATOR): - new diagnosis, unclear etiology - reports [...] cholecystitis. Assessment & Plan (04/02/2023 3:13 PM SENIOR COST ESTIMATOR): Social History Tobacco Use Smoking Status Former [...] cholecystitis. 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 High risk of cardiac event 12/08/2017 Obstructive sleep apnea syndrome 08/24/2017 Overview (12/20/2023): Not on CPAP Assessment & Plan (04/01/2022 11:01 AM SENIOR COST ESTIMATOR): - chronic, uncontrolled - s/p PSG in [...] 06/09/2017 Assessment & Plan (04/01/2022 11:03 AM SENIOR COST ESTIMATOR): - chronic condition - most recent Colonoscopy [...] 06/09/2017 Assessment & Plan (03/30/2024 1:54 PM SENIOR COST ESTIMATOR): BP Readings from Last 3 Encounters: 03/30/24 [...] 08/24/2023 Assessment & Plan (04/02/2023 3:11 PM SENIOR COST ESTIMATOR): BP Readings from Last 3 Encounters: 04/02/23 [...] 12/24/2021 Assessment & Plan (04/01/2022 10:59 AM SENIOR COST ESTIMATOR): - chronic condition, stable status - has [...] 05/06/2023 Assessment & Plan (04/02/2023 10:23 AM SENIOR COST ESTIMATOR): - chronic condition, stable status - currently on Sertaline 100 mg daily, Trazodone 50 mg daily - continue current management Lab Results Component Value Date TSH 3.34 08/24/2017 Assessment & Plan (04/01/2022 10:39 AM SENIOR COST ESTIMATOR): - chronic condition, stable status - currently [...] on file Legal Sex Male 11:04 AM SENIOR COST ESTIMATOR Gender Identity Not on file Sexual Orientation Not on file Last Filed Vital Signs Vital Sign Reading Time Taken Comments Blood Pressure 130/73 05/12/2024 2:35 PM SENIOR COST ESTIMATOR Pulse 79 05/12/2024 2:35 PM SENIOR COST ESTIMATOR Temperature 36.4 C (97.5 F) 03/30/2024 1:13 PM SENIOR COST ESTIMATOR Respiratory Rate 16 12/20/2023 9:48 AM CDT Oxygen Saturation 95% 03/30/2024 1:13 PM SENIOR COST ESTIMATOR Inhaled Oxygen Concentration - - Weight 109.8 kg (242 lb) 05/12/2024 2:35 PM SENIOR COST ESTIMATOR Height 175.3 cm (5' 9) 05/12/2024 2:35 PM SENIOR COST ESTIMATOR Body Mass Index 35.74 05/12/2024 2:35 PM SENIOR COST ESTIMATOR Plan of Treatment Not on file Medical Devices Implanted Type Area Residential Support Specialist Device Identifier Shelf Expiration Date Model / Serial / Lot Jony Total Hip And Lt Knee Hip Procedures Procedure Name Priority Date/Time Associated Diagnosis Comments PSA SCREEN Routine 05/06/2023 11:00 AM SENIOR COST ESTIMATOR Prostate cancer screening CT LUNG CANCER SCREENING Schedule Routine, Read Routine (OP Routine) 04/24/2022 2:45 PM SENIOR COST ESTIMATOR Personal history of tobacco use HEPATITIS C ANTIBODY Routine 12/24/2021 1:38 PM CDT Preventative health care COLONOSCOPY 11/09/2017 12:18 PM CDT from Last 3 Months or Most Recently Relevant to Health Maintenance Results * PSA screen (05/06/2023 11:00 AM SENIOR COST ESTIMATOR) PSA-Total 2.47 <=6.20 ng/mL [facility] ([place]) [...] revised 21. Blood 05/06/2023 11:0 0 AM SENIOR COST ESTIMATOR 05/06/2023 12:05 PM SENIOR COST ESTIMATOR Gadiel Hernandez MD LAB BLOOD ORDERABLES Fi nal Result [facility] ([place]) 1 [facility] Department [place] [address] * CT Lung Cancer Screening (04/24/2022 2:45 PM SENIOR COST ESTIMATOR) Anatomical Region Laterality Modality Chest N/A Computed Tomogra phy 04/25/2022 11:3 3 PM SENIOR COST ESTIMATOR Narrative 04/25/2022 11:39 PM SENIOR COST ESTIMATOR EXAM DESCRIPTION: CT LUNG CANCER SCREENING REASON [...] Elfego Urena M.D. ML: ML Report ID: [id number] Reading Location: [place] [address] Procedure Note Elfego Urena MD - 04/25/2022 [...] Elfego Urena M.D. ML: ML Report ID: [id number] Reading Location: [place] [address] us Gadiel Hernandez MD IMG CT PROCEDURES [...] last revised on 2019. Testing performed by: [facility], [address] [place] [address], [place]., [address] Blood 12/24/2021 1:38 PM CDT 12/24/2021 9:12 PM CDT us Samuel Ansari MD LAB MICROBIOLOGY - GENERAL ORDER PRISCILA Edited Result - Final [facility] 1 [facility] Department [place] [address] * COLONOSCOPY (11/09/2017 12:18 PM CDT) Anatomical Region Laterality Modality Other Narrative Procedure Note Eran Easley MD - 11/09/2017 12:18 PM CDT [facility] Patient Name: India Bell Procedure Date: 11/09/2017 12:18 PM Date of : 1945 Admit Type: Outpatient Age: 72 Gender: Male Attending MD: Eran Easley M.D. Room: [facility] 1 Note Status: Finalized [...] scope was passed under direct vision.The Colonoscope [id number] was introducedthrough the anus and advanced to [...] history of colonic polyps CPT copyright 2017 [employer] [employer]. All rights reserved. The codes documented in this report are preliminary and upon bowling floor desk clerk reviewmay be revised to meet current compliance requirements. Recognized by the [place] [employer] for promoting quality in endoscopy Eran Easley MD ENDOSCOPY PROCEDURES Final Re sult from Last 3 Months or Most Recently Relevant to Health Maintenance Insurance [facility] MED[facility] SUPPLEMENT INSURANCE MEDICARE [place]ER[place] [address] [place] [address] MEDICARE SUPPLEMENT INSURANCE MEDICARE [facility] MEDICARE SUPPLEMENT INSURANCE Advance Directives For more information, please contact: [phone] * Full Code (Latest Code Status on File) Date Activated Date Inactivated Comments 11/09/2017 11:48 AM 11/09/2017 4:08 PM Care Teams Manager Production Relationship Specialty Start Date End Date Gadiel Hernandez MD PCP - General Family Medicine 02/24/22 Fredrick Allison MD Consulting Physician Cardiology 05/23/24
--- OUTSIDE RECORDS SUMMARY | 2024-11-02 17:56 | XMS_ITS | Clinical Summary ---
Author Organization Address [address] [place] [address] Care Team Providers Care Child Health Associate Name Role Phone Gadiel Hernandez MD Primary Care Provider Fredrick Allison MD Unavailable [phone] Allergies No known active allergies Medications sertraline [...] 03/30/2024 Assessment & Plan (03/30/2024 1:55 PM REFLESHER): Chronic, stable, not at goal BMI less than 30. Wt Readings from Last 3 Encounters: 03/30/24 108.4 kg (239 lb) 12/20/23 105.2 kg (232 lb) 08/24/23 108.9 kg (240 lb) Body mass index is 35.29 kg/m . BMI plan includes nutrition and exercise changes Primary osteoarthritis of left shoulder 12/20/19 Assessment & Plan (03/30/2024 1:52 PM REFLESHER): - following with orthopedic provider as above [...] 04/02/2023 Assessment & Plan (04/02/2023 3:11 PM REFLESHER): - new diagnosis, unclear etiology - reports [...] cholecystitis. Assessment & Plan (04/02/2023 3:13 PM REFLESHER): Social History Tobacco Use Smoking Status Former [...] cholecystitis. 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 High risk of cardiac event 12/08/2017 Obstructive sleep apnea syndrome 08/24/2017 Overview (12/20/2023): Not on CPAP Assessment & Plan (04/01/2022 11:01 AM REFLESHER): - chronic, uncontrolled - s/p PSG in [...] 06/09/2017 Assessment & Plan (04/01/2022 11:03 AM REFLESHER): - chronic condition - most recent Colonoscopy [...] 06/09/2017 Assessment & Plan (03/30/2024 1:54 PM REFLESHER): BP Readings from Last 3 Encounters: 03/30/24 [...] 08/24/2023 Assessment & Plan (04/02/2023 3:11 PM REFLESHER): BP Readings from Last 3 Encounters: 04/02/23 [...] 12/24/2021 Assessment & Plan (04/01/2022 10:59 AM REFLESHER): - chronic condition, stable status - has [...] 05/06/2023 Assessment & Plan (04/02/2023 10:23 AM REFLESHER): - chronic condition, stable status - currently on Sertaline 100 mg daily, Trazodone 50 mg daily - continue current management Lab Results Component Value Date TSH 3.34 08/24/2017 Assessment & Plan (04/01/2022 10:39 AM REFLESHER): - chronic condition, stable status - currently [...] Type Department Care Team Description 08/10/2024 Telephone [facility] at [address] [place] [address] Quinn Hayden MD from Last [...] on file Legal Sex Male 11:04 AM REFLESHER Gender Identity Not on file Sexual Orientation Not on file Obstetrics History Last Filed Vital Signs Vital Sign Reading Time Taken Comments Blood Pressure 130/73 05/12/2024 2:35 PM REFLESHER Pulse 79 05/12/2024 2:35 PM REFLESHER Temperature 36.4 C (97.5 F) 03/30/2024 1:13 PM REFLESHER Respiratory Rate 16 12/20/2023 9:48 AM CDT Oxygen Saturation 95% 03/30/2024 1:13 PM REFLESHER Inhaled Oxygen Concentration - - Weight 109.8 kg (242 lb) 05/12/2024 2:35 PM REFLESHER Height 175.3 cm (5' 9) 05/12/2024 2:35 PM REFLESHER Body Mass Index 35.74 05/12/2024 2:35 PM REFLESHER Plan of Treatment Health Maintenance Due Date [...] Completed 12/20/2023 Medical Devices Implanted Type Area Transfer And Pumphouse Operator Chief Device Identifier Shelf Expiration Date Model / Serial / Lot Jony Total Hip And Lt Knee Hip Procedures Procedure Name Priority Date/Time Associated Diagnosis Comments PSA SCREEN Routine 05/06/2023 11:00 AM REFLESHER Prostate cancer screening CT LUNG CANCER SCREENING Schedule Routine, Read Routine (OP Routine) 04/24/2022 2:45 PM REFLESHER Personal history of tobacco use HEPATITIS C ANTIBODY Routine 12/24/2021 1:38 PM CDT Preventative health care COLONOSCOPY 11/09/2017 12:18 PM CDT from Last 3 Months or Most Recently Relevant to Health Maintenance Results * PSA screen (05/06/2023 11:00 AM REFLESHER) PSA-Total 2.47 <=6.20 ng/mL [facility] ([place]) Comment: Interpretive Data AGE SEX REFERENCE INTERVAL [...] revised 21. Blood 05/06/2023 11:0 0 AM REFLESHER 05/06/2023 12:05 PM REFLESHER Gadiel Hernandez MD LAB BLOOD ORDERABLES Fi nal Result [facility] ([place]) 1 [facility] Department [place] [address] * CT Lung Cancer Screening (04/24/2022 2:45 PM REFLESHER) Anatomical Region Laterality Modality Chest N/A Computed Tomogra phy 04/25/2022 11:3 3 PM REFLESHER Narrative 04/25/2022 11:39 PM REFLESHER EXAM DESCRIPTION: CT LUNG CANCER SCREENING REASON [...] Elfego Urena M.D. ML: ML Report ID: [id number] Reading Location: [place] [address] Procedure Note Elfego Urena MD - 04/25/2022 [...] Elfego Urena M.D. ML: ML Report ID: [id number] Reading Location: [place] [address] [facility] Elfego Hernandez MD IM CT PROCEDURES Final [...] last revised on 2019. Testing performed by: , [address] [place] [address], [place]., [address] Blood 12/24/2021 1:38 PM CDT 12/24/2021 9:12 PM CDT us Samuel Ansari MD LAB MICROBIOLOGY - GENERAL ORDER PRISCILA Edited Result - Final [facility] [place]) 1 [facility] Department [place] [address] * COLONOSCOPY (11/09/2017 12:18 PM CDT) Anatomical Region Laterality Modality Other Narrative Procedure Note Eran Easley MD - 11/09/2017 12:18 PM CDT [facility] Patient Name: India Bell Procedure Date: 11/09/2017 12:18 PM Date of : 1945 Admit Type: Outpatient Age: 72 Gender: Male Attending MD: Eran Easley M.D. Room: [facility] ENDOSCOPY ROOM 1 Note Status: Finalized [...] scope was passed under direct vision.The Colonoscope [id number] was introducedthrough the anus and advanced to [...] history of colonic polyps CPT copyright 2017 [employer] [place] [employer]. All rights reserved. The codes documented in this report are preliminary and upon gasoline service attendant reviewmay be revised to meet current compliance requirements. Recognized by the [place] [employer]intestinal [employer] for promoting quality in endoscopy Eran Easley MD ENDOSCOPY PROCEDURES Final Re sult from Last 3 Months or Most Recently Relevant to Health Maintenance Insurance MEDICARE [facility] MEDICARE SUPPLEMENT INSURANCE MEDICARE COMMERCIAL [place] [address] MEDICARE SUPPLEMENT INSURANCE MEDICARE [facility] MEDICARE SUPPLEMENT INSURANCE Advance Directives For more information, please contact: [phone] * Full Code (Latest Code Status on File) Date Activated Date Inactivated Comments 11/09/2017 11:48 AM 11/09/2017 4:08 PM Care Teams Child Health Associate Relationship Specialty Start Date End Date Gadiel Hernandez MD PCP - General Family Medicine 02/24/22 Fredrick Allison MD Consulting Physician Cardiology 05/23/24
--- OUTSIDE RECORDS SUMMARY | 2024-11-02 17:56 | XMS_ITS | Continuity of Care Document ---
Author Name [facility] Organization [facility] Care Team Providers Care Assembler Flexible Leads Name Role Phone [facility] Unavailable Unavailable Medications Combined list of outpatient medications from [facility] and [facility] facilities.Medications provided include 1) outpatient medications from the last 15 months, and 2) patient-reported medications. Medication Details Route Status Patient Instructions Prescription Expires Prescription Number Last Dispense Date Ordering Provider Order Date Order Qty Source HYDROCHLORO THIAZIDE 25MG/LISINO PRIL 20MG TAB TAKE ONE TABLET BY MOUTH EVERY MORNING ORAL ACTIVE PIPPA RUBALCAVA G 2014 [facility] SERTRALINE HCL 100MG TAB TAKE ONE TABLET BY MOUTH EVERY MORNING ORAL ACTIVE PIPPA RUBALCAVA NDA G [facility] Allergies, Adverse Reactions, Alerts Combined list of allergies from [facility] and [facility] facilities. It does not include entries that were removed or entered in error. Substance Category Reaction Severity Reaction type Status Date Reported Comments Source POLLEN Propensity to adverse reaction (finding) Itching of eye active 5 [facility] Immunizations Combined list of available immunizations from the [facility] and [facility] facilities. Immunization Series Date Given Administered By Site Reaction Lot Number CVX Code Drug Souvenir Assembler Status Comments Source TDAP [address] [facility] Social History Combined list of available smoking, tobacco, and other social history from [facility] and [facility] facilities. Social History Type Response Date Comment Sourc e Tobacco smoking status NHIS CURRENT TOBACCO USER 04/23/2014 [facility] History of tobacco use TOBACCO MEDS OFFE RED BUT DECLINED 04/23/2014 [facility]
--- OUTSIDE RECORDS SUMMARY | 2024-11-02 17:56 | XMS_ITS | Encounter Summary ---
Author Organization [facility] Address [address] [place] [address] Phone Care Team Providers Care Geoscience Technician Name Role Phone Samuel Ansari MD Primary Care Provider [phone] Gadiel Hernandez MD Primary Care Provider Fredrick Allison MD Unavailable [phone] Encounter Details Date Type Department Care Team (Late st Contact Info) Description 08/24/2017 Orders Only [facility] ProviderYael MD [address] [place] [id number] Social History Tobacco Use Types Packs/Day Years Used Date Smoking Tobacco: Some Days Smokeless Tobacco: Never Alcohol Use Standard Drinks/Week Comments Yes 0 (1 standard drink = 0.6 oz pur e alcohol) Sex and Gender Information Value Date Recorded Sex Assigned at Not on file Legal Sex Male 11:04 AM COUNSELING PSYCHOLOGIST Gender Identity Not on file Sexual Orientation [...] on filedocumented in this encounter Care Teams Geoscience Technician Relationship Specialty Start Date End Date Samuel Ansari MD PCP - General Family Medicine 12/24/21 02/23/22 Gadiel Hernandez MD PCP - General Family Medicine 02/24/22 Fredrick Allison MD Consulting Physician Cardiology 05/23/24 documented as of this encounter
== END 2024-11-02 17:56 | disposition home or self-care (01) ==
LOC: ANHED 17:54
PROVIDERS: Emergency Provider Physician Assistant
DX: M25.512 Pain in left shoulder (principal); W18.30XA Fall on same level, unspecified, initial encounter; Z98.890 Other specified postprocedural states; I10 Essential (primary) hypertension; G47.33 Obstructive sleep apnea (adult) (pediatric); Z99.89 Dependence on other enabling machines and devices; Z87.891 Personal history of nicotine dependence
CPT/HCPCS: 73030; 99283